=== PATIENT | female | born 1935 | race Caucasian/White ===

== ENCOUNTER 2016-06-24 18:47 | Emergency (ER) | payer MEDICARE, BC ==
[2016-06-24] MEDS ORDERED: Sodium Chloride 0.9% 10 ML Syringe FLUSH PRN (18:55)
[2016-06-24] MEDS ORDERED: Sodium Chloride 0.9% 500 ML IV SCH (19:00)
--- NOTE | 2016-06-24 19:19 | EDM.PDOC ---
<Júnior Coy - Last Filed: 06/24/16 19:14> ED HISTORY OF PRESENT ILLNESS - General Chief Complaint: Cardiovascular Problem Stated Complaint: [facility] Time Seen by Provider: 06/24/16 18:55 Source of Information: Reports: Patient History Limitations: Reports: No limitations - History of Present Illness INITIAL COMMENTS - FREE TEXT/NARRATIVE: The patient is a resident of [facility] which is an assisted living facility. She just sat down to play [place] and she felt like she had gas, upper abdominal pain and she was lightheaded. She passed out but she was still breathing. When EMS got there her heart rate was in the 30s and her blood pressure was in the 70s. She was moaning at first but she later was able to answer questions. When she got to us, her blood pressure was better at 111 systolic and she could answer my questions. She denies headache, chest pain, shortness of breath. She did have some upper abdominal pain when this started but that is better now. She had nausea but that is better and she was lightheaded. She has no numbness but she does have generalized weakness. She has no fever, chills or cough. Timing/Duration: Reports: Minutes: Severity: moderate Location, General: Reports: abdomen Quality: Reports: Sharp Improves with: Reports: None Worsens with: Reports: None Context, General: Reports: Other (She was sitting down to play bingo) Associated Symptoms (General): Reports: nausea/vomiting. Denies: chest pain, cough, fever/chills, shortness of breath - Related Data Allergies/ADRs: Allergies Allergy/AdvReac Type Severity Reaction Status Date / Time acetaminophen Allergy Cannot Verified 06/24/16 18:51 [From Tylenol-Codeine #3] Remember aspirin Allergy Airway Verified 06/24/16 18:51 Tightness codeine phosphate Allergy Cannot Verified 06/24/16 18:51 [From Tylenol-Codeine #3] Remember ibuprofen [From Motrin] Allergy Cannot Verified 06/24/16 18:51 Remember nitrofurantoin Allergy Cannot Verified 06/24/16 18:51 Remember risedronate sodium Allergy Cannot Verified 06/24/16 18:51 [From Actonel] Remember ct dye Allergy Airway Uncoded 06/24/16 18:51 Tightness Home Meds: Home Meds Beta-Carotene (Vitamin A) [A-Tate-25] 25,000 unit PO DAILY 03/24/14 [History] Fluticasone Propionate [Flonase] 50 mcg NASBOTH DAILY 09/02/15 [History] Gabapentin [Neurontin] 400 mg PO TID 09/02/15 [History] Ranitidine HCl [Zantac 75] 75 mg PO DAILY 09/02/15 [History] Benzonatate [Tessalon Perles] 200 mg PO ASDIRECTED PRN 10/07/15 [History] L.acidoph,Paracasei, B.lactis [Probiotic] 1 cap PO DAILY 10/07/15 [History] Levothyroxine Sodium [Synthroid] 25 mcg PO ASDIRECTED 10/07/15 [History] Levothyroxine [Synthroid] 50 mcg PO ASDIRECTED 10/07/15 [History] Methyl Salicylate/Menthol [Icy Hot [place]] 1 applic TOP ASDIRECTED PRN 10/07/15 [ History] Sennosides/Docusate Sodium [Senokot-S Tablet] 1 tab PO DAILY 10/07/15 [History] Simethicone [Gas-X] 80 mg PO ASDIRECTED PRN 10/07/15 [History] Sodium Chloride [[place] Saline] 1 spray INH BID 10/07/15 [History] Vitamin B Complex [B Complex] 1 tab PO DAILY 10/07/15 [History] Warfarin Sodium 3 mg PO DAILY 10/07/15 [History] guaiFENesin [Mucinex] 600 mg PO BID 10/07/15 [History] Acetaminophen [Tylenol Arthritis Pain] 1,300 mg PO Q8H PRN 06/24/16 [History] Acetaminophen [Tylenol] 650 mg PO Q6H PRN 06/24/16 [History] Albuterol [IJD: Albuterol HFA] 16 gm INH TID 06/24/16 [History] Multivitamin with Minerals [Multivitamins with Minerals] 1 tab PO DAILY [History] Mylanta 30 ml PO QID PRN 06/24/16 [History] Polyethylene Glycol 3350 [MiraLAX] 17 gm PO ASDIRECTED PRN 06/24/16 [History] Past Medical History HEENT History: Reports: Hard of hearing Cardiovascular History: Reports: High cholesterol Respiratory History: Reports: PE Other Respiratory History: DVT left leg - coumadin therapy Gastrointestinal History: Reports: GERD Genitourinary History: Reports: UTI, recurrent [employer] History: Reports: Other (see below) Other OB/BYN History: Laparoscopy for left ovarian tumor Musculoskeletal History: Reports: Arthritis, Back pain, chronic, Other (see below) Other Musculoskeletal History: calf pain, spinal stenosis Neurological History: Reports: Other (see below) Other Neuro History: 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 - Past Surgical History HEENT Surgical History: Reports: Adenoidectomy, Naso-sinus surgery, Tonsillectomy GI Surgical History: Reports: Cholecystectomy, Colonoscopy Female Surgical History: Reports: Hysterectomy Social & Family History - Tobacco Use Smoking Status *Q: Never Smoker Second Hand Smoke Exposure: No - Alcohol Use Days Per Week of Alcohol Use: 0 - Recreational Drug Use Recreational Drug Use: No ED ROS GENERAL - Review of Systems Review Of Systems: See Below Constitutional: Reports: no symptoms HEENT: Reports: No symptoms Respiratory: Reports: No Symptoms Cardiovascular: Reports: Lightheadedness Endocrine: Reports: no symptoms GI/Abdominal: Reports: Abdominal pain, Nausea. Denies: Vomiting : Reports: no symptoms Musculoskeletal: Reports: no symptoms Skin: Reports: no symptoms Neurological: Reports: No Symptoms ED EXAM, GENERAL - Physical Exam Exam: See Below Exam Limited By: No limitations General Appearance: alert, no apparent distress Ears: normal external exam Nose: normal inspection Head: atraumatic, normocephalic Neck: normal inspection Respiratory/Chest: no respiratory distress, lungs clear, normal breath sounds Cardiovascular: no edema, bradycardia, systolic murmur GI/Abdominal: soft, non tender, no organomegaly, no mass Back Exam: normal inspection Extremities: normal inspection Neurological: alert, oriented, no motor/sensory deficits EKG INTERPRETATION EKG Date: 06/24/16 Time: 18:46 Rhythm: other (sinus bradycardia) Rate (beats/min): 53 [place]: normal P-wave: present QRS: normal ST-T: normal QT: normal Course - Vital Signs Last Recorded V/S: Last Vital Signs Temp 36.0 C 06/24/16 18:51 Pulse 54 L 06/24/16 18:51 Resp 16 06/24/16 18:51 BP 111/59 L 06/24/16 18:51 Pulse Ox 96 06/24/16 18:51 Orthostatic Blood Pressure [ 145/68 Standing] Orthostatic Blood Pressure [ 146/70 Sitting] Orthostatic Blood Pressure [ 141/70 Supine] - Orders/Labs/Meds Orders: Active Orders 24 hr Category Date Time Status Cardiac Monitoring [RC] . DIRECTED Care 06/24/16 18:55 Active EKG Documentation Completion [RC] STAT Care 06/24/16 18:56 Active Orthostatic Vital Signs [RC] STAT Care 06/24/16 20:58 Active Oxygen Therapy [RC] PRN Care 06/24/16 18:55 Active Peripheral IV Care [RC] . DIRECTED Care 06/24/16 18:55 Active Chest 1V Frontal [CR] Stat Exams 06/24/16 18:56 Taken Sodium Chloride 0.9% [Normal Saline] 500 ml Med 06/24/16 19:00 Active IV .BOLUS Sodium Chloride 0.9% [Saline Flush] Med 06/24/16 18:55 Active 10 ml FLUSH ASDIRECTED PRN Peripheral IV Insertion Adult [OM.PC] Stat Oth 06/24/16 18:55 Ordered Medication Orders Sodium Chloride (Normal Saline) 500 mls @ 1,000 mls/hr IV .BOLUS JOSSY Last Admin: 06/24/16 19:04 Dose: 1,000 mls/hr Sodium Chloride (Saline Flush) 10 ml FLUSH ASDIRECTED PRN PRN Reason: Keep Vein Open Last Admin: 06/24/16 19:04 Dose: 10 ml Labs: Laboratory Tests 06/24/16 06/24/16 06/24/16 Range/Units 09:02 19:05 19:05 WBC 7.39 (3.98-10.04) K/mm3 RBC 3.82 L (3.98-5.22) M/mm3 Hgb 11.4 (11.2-15.7) gm/L Hct 36.3 (34.1-44.9) % MCV 95.0 H (79.4-94.8) fl MCH 29.8 (25.6-32.2) pg MCHC 31.4 L (32.2-35.5) g/dl RDW Std Deviation 45.9 (36.4-46.3) fL Plt Count 236 (182-369) K/mm3 MPV 9.5 (9.4-12.3) fl Neut % (Auto) 34.5 (34.0-71.1) % Lymph % (Auto) 48.8 (19.3-51.7) % [place] % (Auto) 13.4 H (4.7-12.5) % Eos % (Auto) 2.8 (0.7-5.8) Baso % (Auto) 0.4 (0.1-1.2) % Neut # (Auto) 2.54 (1.56-6.13) K/mm3 Lymph # (Auto) 3.61 (1.18-3.74) K/mm3 [place] # (Auto) 0.99 H (0.24-0.36) K/mm3 Eos # (Auto) 0.21 (0.04-0.36) K/mm3 Baso # (Auto) 0.03 (0.01-0.08) K/mm3 PT (8.0-13.0) SECONDS INR APTT (22-36) SECONDS Sodium 141 (136-145) mEq/L Potassium 3.7 (3.5-5.1) mEq/L Chloride 107 (98-107) mEq/L Carbon Dioxide 27 (21-32) mEq/L Anion Gap 10.7 (5-15) BUN 14 (7-18) mg/dL Creatinine 0.9 (0.55-1.02) mg/dL Est Cr Clr Drug Dosing TNP Estimated GFR (MDRD) > 60 (>60) mL/min BUN/Creatinine Ratio 15.6 (14-18) Glucose 151 H (83-115) mg/dL Calcium 8.4 L (8.5-10.1) mg/dL Total Bilirubin 0.3 (0.2-1.0) mg/dL AST 15 (15-37) U/L ALT 17 (14-59) U/L Alkaline Phosphatase 66 (46-116) U/L Troponin I < 0.017 (0.00-0.056) ng/mL Total Protein 5.9 L (6.4-8.2) g/dl Albumin 2.9 L (3.4-5.0) g/dl Globulin 3.0 gm/dL Albumin/Globulin Ratio 1.0 (1-2) Urine Color Yellow (Yellow) Urine Appearance Clear (Clear) Urine pH 5.5 (5.0-8.0) Ur Specific [place] 1.025 (1.005-1.030) Urine Protein 1+ H (Negative) Urine Glucose (UA) Negative (Negative) Urine Ketones Negative (Negative) Urine Occult Blood 2+ H (Negative) Urine Nitrite Negative (Negative) Urine Bilirubin Negative (Negative) Urine Urobilinogen 0.2 (0.2-1.0) Ur Leukocyte Esterase 1+ H (Negative) Urine RBC 0-5 (0-5) /hpf Urine WBC 5-10 H (0-5) /hpf Ur Epithelial Cells Not Reportable Ur Squamous Epith Cells 5-10 H (0-5) /hpf Ur Transition Epith Cell 0-5 (0-5) Amorphous Sediment Few H (NOT SEEN) /hpf Urine Bacteria Few (FEW) /hpf Hyaline Casts 0-5 (0-5) /lpf Urine Mucus Few (FEW) /hpf // Range/Units 19:33 WBC (3.98-10.04) K/mm3 RBC (3.98-5.22) M/mm3 Hgb (11.2-15.7) gm/L Hct (34.1-44.9) % MCV (79.4-94.8) fl MCH (25.6-32.2) pg MCHC (32.2-35.5) g/dl RDW Std Deviation (36.4-46.3) fL Plt Count (182-369) K/mm3 MPV (9.4-12.3) fl Neut % (Auto) (34.0-71.1) % Lymph % (Auto) (19.3-51.7) % [place] % (Auto) (4.7-12.5) % Eos % (Auto) (0.7-5.8) Baso % (Auto) (0.1-1.2) % Neut # (Auto) (1.56-6.13) K/mm3 Lymph # (Auto) (1.18-3.74) K/mm3 [facility] # (Auto) (0.24-0.36) K/mm3 Eos # (Auto) (0.04-0.36) K/mm3 Baso # (Auto) (0.01-0.08) K/mm3 PT 24.6 H (8.0-13.0) SECONDS INR 2.15 APTT 38 H (22-36) SECONDS Sodium (136-145) mEq/L Potassium (3.5-5.1) mEq/L Chloride (98-107) mEq/L Carbon Dioxide (21-32) mEq/L Anion Gap (5-15) BUN (7-18) mg/dL Creatinine (0.55-1.02) mg/dL Est Cr Clr Drug Dosing Estimated GFR (MDRD) (>60) mL/min BUN/Creatinine Ratio (14-18) Glucose (83-115) mg/dL Calcium (8.5-10.1) mg/dL Total Bilirubin (0.2-1.0) mg/dL AST (15-37) U/L ALT (14-59) U/L Alkaline Phosphatase (46-116) U/L Troponin I (0.00-0.056) ng/mL Total Protein (6.4-8.2) g/dl Albumin (3.4-5.0) g/dl Globulin gm/dL Albumin/Globulin Ratio (1-2) Urine Color (Yellow) Urine Appearance (Clear) Urine pH (5.0-8.0) Ur Specific [place] (1.005-1.030) Urine Protein (Negative) Urine Glucose (UA) (Negative) Urine Ketones (Negative) Urine Occult Blood (Negative) Urine Nitrite (Negative) Urine Bilirubin (Negative) Urine Urobilinogen (0.2-1.0) Ur Leukocyte Esterase (Negative) Urine RBC (0-5) /hpf Urine WBC (0-5) /hpf Ur Epithelial Cells Ur Squamous Epith Cells (0-5) /hpf Ur Transition Epith Cell (0-5) Amorphous Sediment (NOT SEEN) /hpf Urine Bacteria (FEW) /hpf Hyaline Casts (0-5) /lpf Urine Mucus (FEW) /hpf Meds: Medications Generic Name Dose Route Start Last Admin Trade Name Freq PRN Reason Stop Dose Admin Sodium Chloride 500 mls @ 1,000 mls/hr 06/24/16 19:00 06/24/16 19:04 Normal Saline IV 1,000 mls/hr .BOLUS JOSSY Administration Sodium Chloride 10 ml 06/24/16 18:55 06/24/16 19:04 Saline Flush FLUSH 10 ml ASDIRECTED PRN Administration Keep Vein Open - Re-Assessments/Exams Free Text/Narrative Re-Assessment/Exam: 06/24/16 19:20 I ordered an IV NS 500ml bolus, EKG, CT of the chest abdomen and pelvis to look at her aorta, labs and UA. My nurse informs me that she is allergic to CT dye and she gets airway swelling. I feel it is to risky to give IV dye even with premedication. I wanted them to go ahead with a CT without. 06/24/16 19:22 It is change of shift. Dr Murrieta to take over. Departure - Departure Disposition: Home, Self-Care 01 Clinical Impression: Vasovagal syncope, Aortic heart murmur on examination, Prediabetes Referrals: Tasha Kay MD [Primary Care Provider] - Forms: ED Department Discharge Additional Instructions: You were seen in the emergency room after passing out while playing bingo. Workup in the emergency room included blood work, a urinalysis, an ECG, a chest x-ray, CT scans of your head, chest, abdomen, and pelvis, and positional blood pressure checks. Your workup found only that your blood glucose was modestly elevated at 151. You likely have a condition called prediabetes, which is where your blood sugar is normal when you are feeling well, but that it goes up when you are under stress, or if given steroids. On examination of your heart, a murmur consistent with aortic stenosis was found. For both your blood sugar issue, and that your heart murmur issue, we are recommending that you followup with your PCP, Dr. Tasha Kay, for further evaluation. It is MOST LIKELY that you passed out because of slowing of your heart as a reaction to your earlier abdominal pain, a phenomenon known as a vasovagal reaction. This is a normal reaction that can happen to anyone. We recommend that you continue to take your current medications as prescribed. If any other problems, please do not hesitate to return to the ER. - My Orders Last 24 Hours: My Active Orders 06/24/16 20:58 Orthostatic Vital Signs [RC] STAT - Assessment/Plan Last 24 Hours: My Active Orders 06/24/16 20:58 Orthostatic Vital Signs [RC] STAT <Barry Murrieta - Last Filed: 06/24/16 22:15> ED HISTORY OF PRESENT ILLNESS - History of Present Illness INITIAL COMMENTS - FREE TEXT/NARRATIVE: Assumed care from Dr. Coy. I have evaluated the patient. The patient's daughter, who works at [employer], and was present at the time, provided additional history. My history is essentially the same as that given to Dr. Coy, that is, the patient was seated, playing bingo, when she complained of abdominal gas and bloating. She then became unresponsive in her chair, groaning. Staff from [employer] checked her pulse and found it to be 29. EMS was called. EMS found the patient's heart rate to be about 30 with blood pressure in the 76. Normal saline 500 mL bolus was started by EMS, and finished in the ED. Here in the ED, the patient's initial heart rate was in the 50s. No prior similar syncopal episodes. The patient reports that she has had dark red blood per rectum yesterday, but not today. She states that she has a known history of diverticulosis. Her last colonoscopy was about a year ago. The patient is on Coumadin for a history of DVT/PE. On my examination, I note the patient has a 3/6 harsh murmur heard best at the right upper sternal border, consistent with aortic stenosis. Her lungs are clear to auscultation bilaterally. Her abdominal exam is benign - she has no tenderness to palpation at this time. Trace bilateral lower extremity edema. Neurologically, the patient has no focal neurologic deficits, although appears to be generally weak or tired. Course - Radiology Interpretation Free Text/Narrative:: Portable chest radiograph does not appear to demonstrate any acute abnormalities. Cardiac silhouette is at the upper limits of normal on this AP view. No pulmonary vascular congestion. No pleural effusions. No focal infiltrate. No pneumothorax. Formal read per the Radiologist pending. CT of the head without contrast is read by Dr. Gabriel as: 1. Sinus findings most likely due to chronic sinusitis. 2. Mild senescent change as noted above. 3. No acute intracranial abnormality is appreciated. CT of the chest without contrast is read by Dr. Gabriel as: 1. Incidental findings. Nothing acute is seen on noncontrast CT study of the chest. CT of the abdomen and pelvis without contrast is read by Dr. Gabriel as: 1. Atherosclerotic change within the aorta and iliac vessels. No aneurysm is seen. 2. Other incidental findings. - Re-Assessments/Exams Free Text/Narrative Re-Assessment/Exam: 06/24/16 21:19 The patient is not orthostatic. We are still waiting for the urinalysis results. 06/24/16 22:07 Test results discussed with the patient and numerous family members. Brodie's workup is unremarkable, and does not explain the cause of the patient's syncopal episode, however, clinically, it appears that she suffered a vasovagal reaction, likely due to abdominal discomfort. Her abdominal discomfort has since resolved, and she is hemodynamically stable at this time. On auscultation of her heart, I heard a murmur consistent with aortic stenosis. I am recommending an echocardiogram as an outpatient followup. Additionally, the patient's blood glucose returned as 151, yet the patient has no history of diabetes. I suspect she has prediabetes. For both of these issues, I will have the patient followup with her PCP, Dr. Tasha Kay. I am comfortable discharging the patient home, and after lengthy discussion with the patient and her family, the patient is comfortable going home, as well. Departure - Departure Time of Disposition: 22:10 Condition: good - My Orders Last 24 Hours: My Active Orders 06/24/16 20:58 Orthostatic Vital Signs [RC] STAT - Assessment/Plan Last 24 Hours: My Active Orders 06/24/16 20:58 Orthostatic Vital Signs [RC] STAT
[2016-06-24 19:41] VITALS: BP 111/59
--- NOTE | 2016-06-24 20:13 | CT ---
CT chest Technique: Multiple axial sections were obtained from above the lung apices inferiorly through the lung bases. Intravenous contrast was not utilized due to history of allergy. Findings: Atherosclerotic change is seen within the thoracic aorta. No aneurysm is seen. No evaluation for dissection can be made without contrast. Mediastinum and hilar regions show small lymph nodes which are within normal limits. No pericardial thickening is seen. Visualized lung bases are clear. No pleural effusions are seen. Bone window settings were reviewed which shows scattered degenerative change within the spine. Impression: 1. Incidental findings. Nothing acute is seen on noncontrast CT study of the chest. Diagnostic code #2 CT abdomen and pelvis Technique: Multiple axial sections were obtained from above the dome of the diaphragm inferiorly through the pubic symphysis. Intravenous and oral contrast not utilized. Intravenous contrast was not utilized due to history of allergy. Findings: Liver and spleen have an unremarkable noncontrast CT appearance. Adrenal glands show no nodule. Pancreas is within normal limits. Kidneys show no abnormal calcifications or hydronephrosis. Aorta shows atherosclerotic change which continues into the iliac vessels without aneurysm. No retroperitoneal adenopathy or mesenteric abnormalities are seen. No pelvic mass or adenopathy is seen. Calcified lesion which is felt compatible with calcified fibroid is noted off the posterior uterus measuring 3.0 cm compatible with old calcified uterine fibroid. No bowel dilatation is seen. Diffuse degenerative change is noted within the spine. Impression: 1. Atherosclerotic change within the aorta and iliac vessels. No aneurysm is seen. 2. Other incidental findings. Diagnostic code #2
--- NOTE | 2016-06-24 20:13 | CT ---
Head CT Technique: Multiple axial sections through the brain were obtained. Intravenous contrast was not utilized. Comparison: Previous head CT exam of 08/13/09 is available as well as previous MRI brain of 07/04/12. Findings: Ventricles along with basal cisterns and sulci over convexities are mildly prominent. Very minimal diminished density is noted within portions of the periventricular white matter compatible with small vessel ischemic demyelination change. No other abnormal parenchymal densities are seen. No evidence of intracranial hemorrhage. No midline shift or mass effect is seen. Bone window settings were reviewed which shows prominent mucosal thickening within both maxillary sinuses. Mild mucosal thickening in noted within the ethmoid sinuses. No acute calvarial abnormality is seen. Impression: 1. Sinus findings most likely due to chronic sinusitis. 2. Mild senescent change as noted above. 3. No acute intracranial abnormality is appreciated. Diagnostic code #2
--- NOTE | 2016-06-25 08:18 | CR ---
Chest: Portable view of the chest was obtained. Comparison: Previous chest x-ray 03/25/14. Heart size and mediastinum are within normal limits for portable technique. Minimal atelectasis within the left base is seen. Lungs otherwise are clear. Bony structures are grossly intact. Impression: 1. Nothing acute is identified on portable chest x-ray. Diagnostic code #2
== END 2016-06-24 22:27 | disposition home or self-care (01) ==
LOC: JD.ED 18:47
DX: R55 Syncope and collapse (principal); Z88.8 Allergy status to other drugs, medicaments and biological substances; Z88.6 Allergy status to analgesic agent; Z91.041 Radiographic dye allergy status; Z79.01 Long term (current) use of anticoagulants; Z79.899 Other long term (current) drug therapy; Z86.718 Personal history of other venous thrombosis and embolism; K21.9 Gastro-esophageal reflux disease without esophagitis; M19.90 Unspecified osteoarthritis, unspecified site; F32.9 Major depressive disorder, single episode, unspecified; F41.9 Anxiety disorder, unspecified; E03.9 Hypothyroidism, unspecified; I35.8 Other nonrheumatic aortic valve disorders; R73.03 Prediabetes
CPT/HCPCS: 36415; 70450; 71010; 71250; 74176; 80053; 81001; 84484; 85025; 85610; 85730; 93005; J7040; J7050; 96360; 99285; 99285-25

== ENCOUNTER 2016-07-30 09:23 | Emergency (ER) | payer MEDICARE, BC ==
[2016-07-30 09:36] VITALS: BP 117/58
--- NOTE | 2016-07-30 09:57 | EDM.PDOC ---
ED HPI GENERAL MEDICAL PROBLEM - General Chief Complaint: Neurological Problem Stated Complaint: [facility] Time Seen by Provider: 07/30/16 09:30 Source of Information: Reports: Patient, EMS, RN Notes Reviewed History Limitations: Reports: No Limitations - History of Present Illness INITIAL COMMENTS - FREE TEXT/NARRATIVE: The patient states that she developed a "gassy stomach" after breakfast this morning. She went and had a bowel movement, but still felt gassy, so went and sat in a chair in her room. She spoke to her son on the telephone, then apparently dropped the phone. The patient's son called the assisted living facility, where staff found the patient is still sitting in her chair, but feeling very weak. She was hemodynamically stable. At this time, the patient states that she feels fine, without any gassy stomach or pain, but that she still feels generally weak. No dyspnea. The patient was seen in this ED 06/24/2016 following a syncopal episode while playing bingo. At that time, she was found to have a heart rate in the 30s, and her preceding symptoms included gas and upper abdominal pain. Her ED workup was unremarkable, although she was found to have a murmur consistent with aortic stenosis. She has subsequently undergone Holter monitor and echocardiogram, results unknown. - Related Data Allergies Allergy/AdvReac Type Severity Reaction Status Date / Time acetaminophen Allergy Cannot Verified 07/30/16 09:30 [From Tylenol-Codeine #3] Remember aspirin Allergy Airway Verified 07/30/16 09:30 Tightness codeine phosphate Allergy Cannot Verified 07/30/16 09:30 [From Tylenol-Codeine #3] Remember ibuprofen [From Motrin] Allergy Cannot Verified 07/30/16 09:30 Remember nitrofurantoin Allergy Cannot Verified 07/30/16 09:30 Remember risedronate sodium Allergy Cannot Verified 07/30/16 09:30 [From Actonel] Remember ct dye Allergy Airway Uncoded 07/30/16 09:30 Tightness Home Meds: Home Meds Beta-Carotene (Vitamin A) [A-Tate-25] 25,000 unit PO DAILY 03/24/14 [History] Fluticasone Propionate [Flonase] 50 mcg NASBOTH DAILY 09/02/15 [History] Gabapentin [Neurontin] 400 mg PO TID 09/02/15 [History] Ranitidine HCl [Zantac 75] 75 mg PO DAILY 09/02/15 [History] Benzonatate [Tessalon Perles] 200 mg PO ASDIRECTED PRN 10/07/15 [History] L.acidoph,Paracasei, B.lactis [Probiotic] 1 cap PO TID 10/07/15 [History] Levothyroxine Sodium [Synthroid] 25 mcg PO MOWEFR 10/07/15 [History] Levothyroxine [Synthroid] 50 mcg PO SUTUTHSA 10/07/15 [History] Methyl Salicylate/Menthol [[place] Hot [place]] 1 applic TOP ASDIRECTED PRN 10/07/15 [ History] Sennosides/Docusate Sodium [Senokot-S Tablet] 1 tab PO DAILY 10/07/15 [History] Simethicone [Gas-X] 80 mg PO ASDIRECTED PRN 10/07/15 [History] Sodium Chloride [[place] Saline] 1 spray INH BID 10/07/15 [History] Vitamin B Complex [B Complex] 1 tab PO DAILY 10/07/15 [History] Warfarin Sodium 3 mg PO SUTUWETHSA 10/07/15 [History] guaiFENesin [Mucinex] 600 mg PO BID 10/07/15 [History] Acetaminophen [Tylenol Arthritis Pain] 1,300 mg PO Q8H PRN 06/24/16 [History] Acetaminophen [Tylenol] 650 mg PO Q6H PRN 06/24/16 [History] Albuterol [IJD: Albuterol HFA] 16 gm INH TID PRN 06/24/16 [History] Multivitamin with Minerals [Multivitamins with Minerals] 1 tab PO DAILY [History] Mylanta 30 ml PO QID PRN 06/24/16 [History] Polyethylene Glycol 3350 [MiraLAX] 17 gm PO ASDIRECTED PRN 06/24/16 [History] Methylcellulose [Citrucel] 500 mg PO BID 07/30/16 [History] Warfarin [Coumadin] 4.5 mg PO MOFR 07/30/16 [History] Past Medical History HEENT History: Reports: Hard of hearing Cardiovascular History: Reports: High Cholesterol Respiratory History: Reports: PE Other Respiratory History: DVT left leg - coumadin therapy Gastrointestinal History: Reports: GERD Genitourinary History: Reports: UTI, Recurrent [employer] History: Reports: Other (See Below) Other OB/BYN History: Laparoscopy for left ovarian tumor Musculoskeletal History: Reports: Arthritis, Back Pain, Chronic, Other (See Below) Other Musculoskeletal History: calf pain, spinal stenosis Neurological History: Reports: Other (See Below) Other Neuro History: 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 - Past Surgical History HEENT Surgical History: Reports: Adenoidectomy, Naso-Sinus Surgery, Tonsillectomy GI Surgical History: Reports: Cholecystectomy, Colonoscopy Social & Family History - Tobacco Use Smoking Status *Q: Never Smoker Second Hand Smoke Exposure: No - Alcohol Use Days Per Week of Alcohol Use: 0 - Recreational Drug Use Recreational Drug Use: No - Living Situation & Occupation Living situation: Reports: assisted living Occupation: retired ED ROS GENERAL - Review of Systems Review Of Systems: See Below Constitutional: Reports: No Symptoms HEENT: Reports: No Symptoms Respiratory: Reports: No Symptoms Cardiovascular: Reports: No Symptoms Endocrine: Reports: No Symptoms GI/Abdominal: Reports: No Symptoms : Reports: No Symptoms Musculoskeletal: Reports: No Symptoms Skin: Reports: No Symptoms Neurological: Reports: No Symptoms Psychiatric: Reports: No Symptoms Hematologic/Lymphatic: Reports: No Symptoms Immunologic: Reports: No Symptoms - Physical Exam Exam: See Below Exam Limited By: No Limitations General Appearance: Alert, WD/WN, No Apparent Distress, Other (Appears tired/ fatiqued) Eye Exam: Bilateral Eye: Other (Post cataract surgery) Ears: Normal External Exam, Normal Canal, Hearing Grossly Normal, Normal TMs Nose: Normal Inspection, Normal Mucosa, No Blood Throat/Mouth: Normal Inspection, Normal Lips, Normal Teeth, Normal Gums, Normal Voice, No Airway Compromise, Other (Dry oral mucosa) Head Exam: Atraumatic, Normocephalic Neck: Normal Inspection, Full Range of Motion Respiratory/Chest: No Respiratory Distress, Lungs Clear, Normal Breath Sounds, No Accessory Muscle Use Cardiovascular: Normal Peripheral Pulses, Regular Rate, Rhythm, No Edema, No Gallop, No JVD, No Rub, Systolic Murmur (3/6, best heard at the RUSB, c/w ) GI/Abdominal: Normal Bowel Sounds, Soft, Non-Tender, No Organomegaly, No Distention, No Abnormal Bruit, No Mass (Female) Exam: Deferred Rectal (Female) Exam: Deferred Neuro Exam (Abbreviated): Alert, Oriented, CN II-XII Intact, Normal Cognition, No Motor/Sensory Deficits Back Exam: Normal Inspection, Full Range of Motion, NT Extremities: Normal Inspection, Normal Range of Motion, No Pedal Edema, Normal Capillary Refill Psychiatric: Normal Affect Skin Exam: Warm, Dry, Intact, Normal Color, No Rash EKG INTERPRETATION EKG Date: 07/30/16 Time: 10:13 Rhythm: NSR Rate (beats/min): 53 [place]: normal P-wave: present QRS: normal ST-T: normal QT: normal Comparison: no change (06/24/2016) Course - Vital Signs Last Recorded V/S: Last Vital Signs Temp 35.7 C 07/30/16 09:30 Pulse 58 L 07/30/16 09:30 Resp 13 07/30/16 09:30 BP 117/58 L 07/30/16 09:30 Pulse Ox 95 07/30/16 09:30 Orthostatic Blood Pressure [ 118/75 Standing] Orthostatic Blood Pressure [ 123/61 Sitting] Orthostatic Blood Pressure [ 118/59 Supine] - Orders/Labs/Meds Orders: Active Orders 24 hr Category Date Time Status EKG Documentation Completion [RC] STAT Care 07/30/16 09:48 Active Orthostatic Vital Signs [RC] STAT Care 07/30/16 09:48 Active Labs: Laboratory Tests 07/30/16 07/30/16 07/30/16 Range/Units 09:57 10:11 10:11 WBC 6.39 (3.98-10.04) K/mm3 RBC 4.35 (3.98-5.22) M/mm3 Hgb 13.1 (11.2-15.7) gm/L Hct 41.3 (34.1-44.9) % MCV 94.9 H (79.4-94.8) fl MCH 30.1 (25.6-32.2) pg MCHC 31.7 L (32.2-35.5) g/dl RDW Std Deviation 46.6 H (36.4-46.3) fL Plt Count 238 (182-369) K/mm3 MPV 9.9 (9.4-12.3) fl Neutrophils % (Manual) 66 H (40-60) % Band Neutrophils % 1 (0-10) % Lymphocytes % (Manual) 24 (20-40) % Atypical Lymphs % 0 % Monocytes % (Manual) 7 (2-10) % Eosinophils % (Manual) 2 (0.7-5.8) % Basophils % (Manual) 0 L (0.1-1.2) Platelet Estimate Adequate RBC Morph Comment Normal PT (8.0-13.0) SECONDS INR APTT (22-36) SECONDS Sodium 144 (136-145) mEq/L Potassium 3.9 (3.5-5.1) mEq/L Chloride 107 (98-107) mEq/L Carbon Dioxide 29 (21-32) mEq/L Anion Gap 11.9 (5-15) BUN 13 (7-18) mg/dL Creatinine 0.8 (0.55-1.02) mg/dL Est Cr Clr Drug Dosing 57.64 mL/min Estimated GFR (MDRD) > 60 (>60) mL/min BUN/Creatinine Ratio 16.3 (14-18) Glucose 119 H (83-115) mg/dL Calcium 9.3 (8.5-10.1) mg/dL Magnesium 2.2 (1.8-2.4) mg/dl Total Bilirubin 0.3 (0.2-1.0) mg/dL AST 18 (15-37) U/L ALT 22 (14-59) U/L Alkaline Phosphatase 65 (46-116) U/L Troponin I < 0.017 (0.00-0.056) ng/mL Total Protein 6.8 (6.4-8.2) g/dl Albumin 3.4 (3.4-5.0) g/dl Globulin 3.4 gm/dL Albumin/Globulin Ratio 1.0 (1-2) TSH 3rd Generation 6.212 H (0.358-3.74) uIU/mL Urine Color Yellow (Yellow) Urine Appearance Clear (Clear) Urine pH 5.5 (5.0-8.0) Ur Specific [place] 1.020 (1.005-1.030) Urine Protein Negative (Negative) Urine Glucose (UA) Negative (Negative) Urine Ketones Negative (Negative) Urine Occult Blood Negative (Negative) Urine Nitrite Negative (Negative) Urine Bilirubin Negative (Negative) Urine Urobilinogen 0.2 (0.2-1.0) Ur Leukocyte Esterase Negative (Negative) Urine RBC 0-5 (0-5) /hpf Urine WBC 0-5 (0-5) /hpf Ur Epithelial Cells 0-5 (0-5) /hpf Urine Bacteria Rare (FEW) /hpf Urine Mucus Not seen (FEW) /hpf 07/30/16 Range/Units 10:11 WBC (3.98-10.04) K/mm3 RBC (3.98-5.22) M/mm3 Hgb (11.2-15.7) gm/L Hct (34.1-44.9) % MCV (79.4-94.8) fl MCH (25.6-32.2) pg MCHC (32.2-35.5) g/dl RDW Std Deviation (36.4-46.3) fL Plt Count (182-369) K/mm3 MPV (9.4-12.3) fl Neutrophils % (Manual) (40-60) % Band Neutrophils % (0-10) % Lymphocytes % (Manual) (20-40) % Atypical Lymphs % % Monocytes % (Manual) (2-10) % Eosinophils % (Manual) (0.7-5.8) % Basophils % (Manual) (0.1-1.2) Platelet Estimate RBC Morph Comment PT 23.7 H (8.0-13.0) SECONDS INR 2.08 APTT 36 (22-36) SECONDS Sodium (136-145) mEq/L Potassium (3.5-5.1) mEq/L Chloride (98-107) mEq/L Carbon Dioxide (21-32) mEq/L Anion Gap (5-15) BUN (7-18) mg/dL Creatinine (0.55-1.02) mg/dL Est Cr Clr Drug Dosing mL/min Estimated GFR (MDRD) (>60) mL/min BUN/Creatinine Ratio (14-18) Glucose (83-115) mg/dL Calcium (8.5-10.1) mg/dL Magnesium (1.8-2.4) mg/dl Total Bilirubin (0.2-1.0) mg/dL AST (15-37) U/L ALT (14-59) U/L Alkaline Phosphatase (46-116) U/L Troponin I (0.00-0.056) ng/mL Total Protein (6.4-8.2) g/dl Albumin (3.4-5.0) g/dl Globulin gm/dL Albumin/Globulin Ratio (1-2) TSH 3rd Generation (0.358-3.74) uIU/mL Urine Color (Yellow) Urine Appearance (Clear) Urine pH (5.0-8.0) Ur Specific [place] (1.005-1.030) Urine Protein (Negative) Urine Glucose (UA) (Negative) Urine Ketones (Negative) Urine Occult Blood (Negative) Urine Nitrite (Negative) Urine Bilirubin (Negative) Urine Urobilinogen (0.2-1.0) Ur Leukocyte Esterase (Negative) Urine RBC (0-5) /hpf Urine WBC (0-5) /hpf Ur Epithelial Cells (0-5) /hpf Urine Bacteria (FEW) /hpf Urine Mucus (FEW) /hpf - Re-Assessments/Exams Free Text/Narrative Re-Assessment/Exam: 07/30/16 10:43 The patient is not orthostatic. 07/30/16 11:29 Test results discussed with the patient, her son, and his . Today's workup is grossly unremarkable, with the exception of her TSH being elevated at 6.212. With further discussion, the patient states that she takes her Synthroid in the morning at breakfast, along with the rest of her morning medications. Synthroid should be taken 2 hours prior to eating, and her taking her Synthroid with breakfast may be the reason why her TSH remains elevated. I'm going to recommend that she start taking this medicine 2 hours prior to breakfast. With respect to her possible syncopal episode, the etiology is unclear. It is possible that she had a vagal reaction, although by the time that her vitals were checked, they had returned to normal. At this time, the patient is alert and neurologically sound. There is no suggestion that she suffered a stroke or TIA. During this ED visit, it was noted that the patient's oxygen saturation drops when she falls asleep, but returns to normal when she wakes up. She may benefit from supplemental oxygen at bedtime. Departure - Departure Time of Disposition: 11:32 Disposition: Home, Self-Care 01 Condition: good Clinical Impression: Vasovagal syncope, Nocturnal hypoxemia, Elevated TSH - Discharge Information Referrals: Tasha Kay MD [Primary Care Provider] - Forms: ED Department Discharge Additional Instructions: You were seen in the emergency room after passing out or nearly passing out at home. Workup in the ER included blood work, a urinalysis, an ECG, and positional blood pressure checks. Your entire workup was unremarkable, with the exception of your TSH, which was found to be elevated at 6.212. The cause of your passing out is unclear. It is possible that you had a note or vasovagal reaction because of abdominal discomfort. Your TSH may be elevated because you are not taking your Synthroid correctly. Start taking your Synthroid 2 hours before breakfast. You should then have your TSH rechecked in about 5 weeks. We found that your oxygen saturation drops when you sleep. You may benefit from supplemental oxygen at bedtime. Please talk to your PCP, Dr. Tasha Kay, about this. If any other problems, please do not hesitate to return to the ER. - My Orders Last 24 Hours: My Active Orders 07/30/16 09:48 EKG Documentation Completion [RC] STAT Orthostatic Vital Signs [RC] STAT - Assessment/Plan Last 24 Hours: My Active Orders 07/30/16 09:48 EKG Documentation Completion [RC] STAT Orthostatic Vital Signs [RC] STAT
== END 2016-07-30 11:30 | disposition home or self-care (01) ==
LOC: JD.ED 09:23
DX: R55 Syncope and collapse (principal); R09.02 Hypoxemia; R79.89 Other specified abnormal findings of blood chemistry; E78.00 Pure hypercholesterolemia, unspecified; K21.9 Gastro-esophageal reflux disease without esophagitis; F41.8 Other specified anxiety disorders; E03.9 Hypothyroidism, unspecified; M19.90 Unspecified osteoarthritis, unspecified site; Z98.890 Other specified postprocedural states; Z79.01 Long term (current) use of anticoagulants; Z79.899 Other long term (current) drug therapy; Z88.5 Allergy status to narcotic agent; Z88.6 Allergy status to analgesic agent; Z88.8 Allergy status to other drugs, medicaments and biological substances; Z91.041 Radiographic dye allergy status
CPT/HCPCS: 36415; 80053; 81001; 83735; 84443; 84484; 85025; 85610; 85730; 93005; 99285; P9612

== ENCOUNTER 2017-02-26 17:01 | Emergency (ER) | payer MEDICARE, BC ==
[2017-02-26 17:26] VITALS: BP 152/62
[2017-02-26] MEDS ORDERED: Sodium Chloride 0.9% 10 ML Syringe FLUSH PRN (17:26)
[2017-02-26] MEDS ORDERED: Sodium Chloride 0.9% 500 ML IV ONE ×3 (17:27→18:22)
--- NOTE | 2017-02-26 17:35 | EDM.PDOC ---
ED HPI GENERAL MEDICAL PROBLEM - General Chief Complaint: Gastrointestinal Problem Stated Complaint: [facility] Time Seen by Provider: 02/26/17 17:19 Source of Information: Reports: Patient History Limitations: Reports: No Limitations - History of Present Illness INITIAL COMMENTS - FREE TEXT/NARRATIVE: Patient is a 81-year-old female who presents to the ED from [facility] complaining of weakness, poor appetite, fatigue, nausea/vomiting, and diarrhea. Patient states this started yesterday a.m. and has persisted. Unable to keep any fluids or foods down. There have been no known recent sick exposures. Complains of generalized body aches secondary to vomiting. Nausea has improved with administration of Zofran enroute to the ED. She denies any headaches, vision changes, numbness to the extremities, chest pain, shortness of breath, dysuria, rash, difficulty swallowing, or any additional complaints. 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, hypertension, hyperlipidemia, osteoarthritis, DVT left leg, PE, GERD, hypothyroidism, aortic valve stenosis Current medications include: Albuterol inhaler, B complex vitamins, beta- carotene, Coumadin, Flonase, gabapentin, levothyroxine, Tessalon pearls, Zantac - Related Data Allergies Allergy/AdvReac Type Severity Reaction Status Date / Time acetaminophen Allergy Cannot Verified 02/26/17 17:26 [From Tylenol-Codeine #3] Remember aspirin Allergy Airway Verified 02/26/17 17:26 Tightness codeine phosphate Allergy Cannot Verified 02/26/17 17:26 [From Tylenol-Codeine #3] Remember ibuprofen [From Motrin] Allergy Cannot Verified 02/26/17 17:26 Remember nitrofurantoin Allergy Cannot Verified 02/26/17 17:26 Remember risedronate sodium Allergy Cannot Verified 02/26/17 17:26 [From Actonel] Remember ct dye Allergy Airway Uncoded 02/26/17 17:26 Tightness Home Meds: Home Meds Beta-Carotene (Vitamin A) [A-Tate-25] 25,000 unit PO DAILY 03/24/14 [History] Fluticasone Propionate [Flonase] 1 spray NASBOTH DAILY 09/02/15 [History] Gabapentin [Neurontin] 400 mg PO TID 09/02/15 [History] Ranitidine HCl [Zantac 75] 75 mg PO BEDTIME 09/02/15 [History] Benzonatate [Tessalon Perles] 200 mg PO Q8H PRN 10/07/15 [History] L.acidoph,Paracasei, B.lactis [Probiotic] 1 cap PO TID 10/07/15 [History] Levothyroxine Sodium [Synthroid] 25 mcg PO MOWEFR 10/07/15 [History] Levothyroxine [Synthroid] 50 mcg PO SUTUTHSA 10/07/15 [History] Methyl Salicylate/Menthol [[place]] 1 applic TOP ASDIRECTED PRN 10/07/15 [ History] Sennosides/Docusate Sodium [Senokot-S Tablet] 1 tab PO DAILY 10/07/15 [History] Simethicone [Gas-X] 80 mg PO TID PRN 10/07/15 [History] Sodium Chloride [[place] Saline] 1 spray INH BID 10/07/15 [History] Vitamin B Complex [B Complex] 1 tab PO DAILY 10/07/15 [History] Warfarin Sodium 3 mg PO SUTUTHSA 10/07/15 [History] guaiFENesin [Mucinex] 600 mg PO BID 10/07/15 [History] Acetaminophen [Tylenol Arthritis Pain] 1,300 mg PO Q8H PRN 06/24/16 [History] Acetaminophen [Tylenol] 650 mg PO Q6H PRN 06/24/16 [History] Albuterol [IJD: Albuterol HFA] 2 puff INH TID PRN 06/24/16 [History] Multivitamin with Minerals [Multivitamins with Minerals] 1 tab PO DAILY [History] Mylanta 30 ml PO QID PRN 06/24/16 [History] Polyethylene Glycol 3350 [MiraLAX] 17 gm PO ASDIRECTED PRN 06/24/16 [History] Methylcellulose [Citrucel] 500 mg PO BID 07/30/16 [History] Warfarin [Coumadin] 4.5 mg PO MOWEFR 07/30/16 [History] Ondansetron [Zofran ODT] 4 mg PO Q6H PRN #20 tab.dis 02/26/17 [Rx] Potassium Chloride 20 meq PO QAM #30 tablet.er 02/26/17 [Rx] guaiFENesin [Mucinex] 600 mg PO BID PRN 02/26/17 [History] Past Medical History HEENT History: Reports: Hard of Hearing Cardiovascular History: Reports: High Cholesterol Respiratory History: Reports: PE Other Respiratory History: DVT left leg - coumadin therapy Gastrointestinal History: Reports: GERD Genitourinary History: Reports: UTI, Recurrent [employer]INE [employer] 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 Denies : Fever HEENT: Reports: No Symptoms Respiratory: Reports: No Symptoms Cardiovascular: Reports: No Symptoms GI/Abdominal: Reports: Abdominal Pain (Faint abdominal cramping), Diarrhea, Decreased Appetite, Nausea, Vomiting. Denies: Black Stool, Bloody Stool, Constipation, Hematemesis, Hematochezia, Melena : Reports: No Symptoms Musculoskeletal: Reports: Muscle Pain (Generalized body aches) Skin: Reports: No Symptoms Neurological: Reports: Dizziness, Weakness. Denies: Headache ED EXAM, GI/ABD - Physical Exam Exam: See Below Exam Limited By: No Limitations General Appearance: Alert, WD/WN, Moderate Distress Ears: Hearing Grossly Normal Nose: Normal Inspection Throat/Mouth: Normal Voice, No Airway Compromise, Other (Dry oromucosa) Neck: Normal Inspection, Supple, Non-Tender, Full Range of Motion. No: Lymphadenopathy (L), Lymphadenopathy (R) Respiratory/Chest: No Respiratory Distress, Lungs Clear, Normal Breath Sounds, No Accessory Muscle Use, Chest Non-Tender Cardiovascular: Normal Peripheral Pulses, Regular Rate, Rhythm, Systolic Murmur (Aortic in origin) GI/Abdominal Exam: Normal Bowel Sounds, Soft, Non-Tender, No Organomegaly, No Distention, No Mass Extremities: Normal Inspection, Normal Range of Motion, Non-Tender, No Pedal Edema, Normal Capillary Refill Neurological: Alert, Oriented, CN II-XII Intact, Normal Cognition, No Motor/ Sensory Deficits Psychiatric: Normal Affect, Normal Mood Skin Exam: Warm, Dry, Intact, Normal Color Course - Vital Signs Last Recorded V/S: Last Vital Signs Temp 96.6 F 02/26/17 17:18 Pulse 69 02/26/17 17:18 Resp 14 02/26/17 17:18 BP 152/62 H 02/26/17 17:18 Pulse Ox 92 L 02/26/17 17:18 - Orders/Labs/Meds Orders: Active Orders 24 hr Category Date Time Status EKG Documentation Completion [RC] STAT Care 02/26/17 18:09 Active EKG Documentation Completion [RC] STAT Care 02/26/17 18:09 Active Peripheral IV Care [RC] . DIRECTED Care 02/26/17 17:27 Active Abdomen 1V Flat [CR] Stat Exams 02/26/17 17:28 Taken Chest 1V Frontal [CR] Stat Exams 02/26/17 17:28 Taken Peripheral IV Insertion Adult [OM.PC] Stat Oth 02/26/17 17:26 Ordered Labs: Laboratory Tests 02/26/17 02/26/17 02/26/17 Range/Units 17:19 17:25 17:25 WBC 8.78 (3.98-10.04) K/mm3 RBC 4.33 (3.98-5.22) M/mm3 Hgb 13.1 (11.2-15.7) gm/L Hct 41.8 (34.1-44.9) % MCV 96.5 H (79.4-94.8) fl MCH 30.3 (25.6-32.2) pg MCHC 31.3 L (32.2-35.5) g/dl RDW Std Deviation 48.0 H (36.4-46.3) fL Plt Count 239 (182-369) K/mm3 MPV 10.1 (9.4-12.3) fl Neut % (Auto) 67.9 (34.0-71.1) % Lymph % (Auto) 18.6 L (19.3-51.7) % [place] % (Auto) 12.5 (4.7-12.5) % Eos % (Auto) 0.9 (0.7-5.8) Baso % (Auto) 0.0 L (0.1-1.2) % Neut # (Auto) 5.96 (1.56-6.13) K/mm3 Lymph # (Auto) 1.63 (1.18-3.74) K/mm3 [place] # (Auto) 1.10 H (0.24-0.36) K/mm3 Eos # (Auto) 0.08 (0.04-0.36) K/mm3 Baso # (Auto) 0.00 L (0.01-0.08) K/mm3 PT (8.0-13.0) SECONDS INR Sodium 139 (136-145) mEq/L Potassium 3.1 L (3.5-5.1) mEq/L Chloride 103 (98-107) mEq/L Carbon Dioxide 27 (21-32) mEq/L Anion Gap 12.1 (5-15) BUN 11 (7-18) mg/dL Creatinine 0.7 (0.55-1.02) mg/dL Est Cr Clr Drug Dosing 65.87 mL/min Estimated GFR (MDRD) > 60 (>60) mL/min BUN/Creatinine Ratio 15.7 (14-18) Glucose 144 H (83-115) mg/dL Calcium 8.6 (8.5-10.1) mg/dL Magnesium 1.9 (1.8-2.4) mg/dl Total Bilirubin 0.3 (0.2-1.0) mg/dL AST 21 (15-37) U/L ALT 22 (14-59) U/L Alkaline Phosphatase 57 (46-116) U/L Troponin I (0.00-0.056) ng/mL C-Reactive Protein 1.5 H* (<1.0) mg/dL Total Protein 6.8 (6.4-8.2) g/dl Albumin 3.1 L (3.4-5.0) g/dl Globulin 3.7 gm/dL Albumin/Globulin Ratio 0.8 L (1-2) TSH 3rd Generation (0.358-3.74) uIU/mL Urine Color Yellow (Yellow) Urine Appearance Slt cloudy H (Clear) Urine pH 5.5 (5.0-8.0) Ur Specific [place] 1.025 (1.005-1.030) Urine Protein Trace H (Negative) Urine Glucose (UA) Negative (Negative) Urine Ketones Trace H (Negative) Urine Occult Blood Negative (Negative) Urine Nitrite Negative (Negative) Urine Bilirubin Negative (Negative) Urine Urobilinogen 0.2 (0.2-1.0) Ur Leukocyte Esterase Negative (Negative) Urine RBC 0-5 (0-5) /hpf Urine WBC 0-5 (0-5) /hpf Ur Epithelial Cells 5-10 H (0-5) /hpf Urine Bacteria Few (FEW) /hpf Hyaline Casts 5-10 H (0-5) /lpf Urine Mucus Moderate H (FEW) /hpf 02/26/17 02/26/17 02/26/17 Range/Units 17:25 17:25 17:25 WBC (3.98-10.04) K/mm3 RBC (3.98-5.22) M/mm3 Hgb (11.2-15.7) gm/L Hct (34.1-44.9) % MCV (79.4-94.8) fl MCH (25.6-32.2) pg MCHC (32.2-35.5) g/dl RDW Std Deviation (36.4-46.3) fL Plt Count (182-369) K/mm3 MPV (9.4-12.3) fl Neut % (Auto) (34.0-71.1) % Lymph % (Auto) (19.3-51.7) % [place]anner % (Auto) (4.7-12.5) % Eos % (Auto) (0.7-5.8) Baso % (Auto) (0.1-1.2) % Neut # (Auto) (1.56-6.13) K/mm3 Lymph # (Auto) (1.18-3.74) K/mm3 [place] # (Auto) (0.24-0.36) K/mm3 Eos # (Auto) (0.04-0.36) K/mm3 Baso # (Auto) (0.01-0.08) K/mm3 PT 30.5 H (8.0-13.0) SECONDS INR 2.63 Sodium (136-145) mEq/L Potassium (3.5-5.1) mEq/L Chloride (98-107) mEq/L Carbon Dioxide (21-32) mEq/L Anion Gap (5-15) BUN (7-18) mg/dL Creatinine (0.55-1.02) mg/dL Est Cr Clr Drug Dosing mL/min Estimated GFR (MDRD) (>60) mL/min BUN/Creatinine Ratio (14-18) Glucose (83-115) mg/dL Calcium (8.5-10.1) mg/dL Magnesium (1.8-2.4) mg/dl Total Bilirubin (0.2-1.0) mg/dL AST (15-37) U/L ALT (14-59) U/L Alkaline Phosphatase (46-116) U/L Troponin I < 0.017 (0.00-0.056) ng/mL C-Reactive Protein (<1.0) mg/dL Total Protein (6.4-8.2) g/dl Albumin (3.4-5.0) g/dl Globulin gm/dL Albumin/Globulin Ratio (1-2) TSH 3rd Generation 3.645 (0.358-3.74) uIU/mL Urine Color (Yellow) Urine Appearance (Clear) Urine pH (5.0-8.0) Ur Specific [place] (1.005-1.030) Urine Protein (Negative) Urine Glucose (UA) (Negative) Urine Ketones (Negative) Urine Occult Blood (Negative) Urine Nitrite (Negative) Urine Bilirubin (Negative) Urine Urobilinogen (0.2-1.0) Ur Leukocyte Esterase (Negative) Urine RBC (0-5) /hpf Urine WBC (0-5) /hpf Ur Epithelial Cells (0-5) /hpf Urine Bacteria (FEW) /hpf Hyaline Casts (0-5) /lpf Urine Mucus (FEW) /hpf Meds: Medications Discontinued Medications Generic Name Dose Route Start Last Admin Trade Name Freq PRN Reason Stop Dose Admin Diltiazem HCl 5 mg 02/26/17 20:02 02/26/17 22:31 Diltiazem IVPUSH 02/26/17 20:03 Not Given ONETIME ONE Sodium Chloride 500 mls @ 999 mls/hr 02/26/17 17:27 02/26/17 17:37 Normal Saline IV 02/26/17 17:57 999 mls/hr .BOLUS ONE Administration Sodium Chloride 500 mls @ 999 mls/hr 02/26/17 17:42 Normal Saline IV 02/26/17 18:12 .BOLUS ONE Magnesium Sulfate 2 gm/ Premix 50 mls @ 25 mls/hr 02/26/17 18:09 IV 02/26/17 20:08 ONETIME ONE Potassium Chloride 10 meq/ 100 mls @ 100 mls/hr 02/26/17 18:12 02/26/17 18:26 Premix IV 02/26/17 19:11 100 mls/hr ASDIRECTED ONE Administration Potassium Chloride 10 meq/ 100 mls @ 100 mls/hr 02/26/17 18:16 02/26/17 19:32 Premix IV 02/26/17 19:15 100 mls/hr ASDIRECTED ONE Administration Sodium Chloride 500 mls @ 250 mls/hr 02/26/17 18:22 02/26/17 20:11 Normal Saline IV 02/26/17 20:21 250 mls/hr .BOLUS ONE Administration Magnesium Sulfate 2 gm/ Premix 50 mls @ 25 mls/hr 02/26/17 19:59 02/26/17 20: 06 IV 02/26/17 21:58 25 mls/hr ONETIME ONE Administration Sodium Chloride 250 mls @ 250 mls/hr 02/26/17 20:02 02/26/17 23:08 Normal Saline IV 02/26/17 21:01 Not Given .BOLUS ONE Sodium Chloride 10 ml 02/26/17 17:26 02/26/17 17:37 Saline Flush FLUSH 10 ml ASDIRECTED PRN Administration Keep Vein Open - Re-Assessments/Exams Free Text/Narrative Re-Assessment/Exam: Peripheral IV established with normal saline 500 mL bolus. Initial labs and studies include CBC, chem 14, magnesium, UA, CRP, one view abdomen, EKG, 1 view chest. 02/26/17 17:43 per nursing custodial reported patient's temperature was 95.1 F. With evaluation the ED patient's O2 sats dropped in the 70s thus prompting administration of O2 via nasal cannula. Believe patient may be septic. This the case phone septic protocol this would be 2400 mL of IV fluids. At this point will administer 500 male bolus with reassessment and then another 500 mils bolus thereafter. Will make a decision for additional IV fluids thereafter. EKG sinus rhythm at a rate of [address] changes noted. She is not have any chest pain but due to her age will go ahead and check a troponin. 1802 per nursing staff heart rhythm is change. When printed out it appears to be in atrial fib/flutter. Second EEG has been ordered. Ordered 20 mg of potassium. Abdominal x-ray reviewed: This is a one view flat few. Copious amounts air present with findings concerning for bowel obstruction. Reviewed with Dr. Wyatt. CXR reviewed: No acute findings noted. Unchanged from previous x-ray. Reviewed with Dr. Wyatt. 2nd bolus of fluids 500mls will be ran at 250mls/hr. Will order ct of the abdomen and pelvis IV and oral contrast. Patient does have a allergy to IV contrast thus we'll cancel the CT study at this point. Patient unable to drink any oral contrast this time. 1926 Reassessment, blood pressure 94/63 with heart rate variable 104 to 115 atrial fibrillation. On reexamination patient states she's feeling better. She is more alert. On examination of the abdomen there is no pain. When asked if she is passing gas she is. She's had no further diarrhea episodes. INR and TSH are pending. Once potassium is in will order mag 2 gram IV and another bolus of IVF. Normal saline 250 mL an hour then 125 mL an hour thereafter. 5 mg of Cardizem assuming ordered as well. Will wait to push until magnesium has been administered. 02/26/17 19:53 reassessment, patient states her mouth is feeling much more moist after receiving the IV fluids. Blood pressure 114/74 heart rate 115 bpm fluctuates 125 bpm current rhythm atrial fibrillation. 02/26/17 20:04 INR 2.63. TSH 3.6 2014 Converted to Sinus Rhythm at a rate of 88 with starting Mg. 02/26/17 20:[address] Fernández configuration management consultant Hospitalists. Discussed patient her. Believes patient may benefit from Low Dose Atenolol 25mg everyday after lunch to ensure stays out of Atrial fibrillation. No need to admit at this point. 02/26/17 22:27 discharge is related due to the potassium has approximately 40 milliliters to run in. Magnesium was ran over 2 hours. Once these have been completed. The patient up and walking see how she does prior to discharge home. 02/26/17 22:36 IV medications have been completed. Patient got up and ambulated up and down the hallway in the ED with no dizziness or issues. She is ready to be discharged home. I did speak with Raji ibarra son and is okay with this plan. [facility] has been contacted to pick the patient up to be transported back. Departure - Departure Time of Disposition: 22:38 Disposition: DC/Tfer to [facility] Condition: Good Clinical Impression: Gastroenteritis, Hypokalemia Atrial fibrillation Qualifiers: Atrial fibrillation type: paroxysmal Qualified Code(s): I48.0 - Paroxysmal atrial fibrillation - Discharge Information Prescriptions: Ondansetron [Zofran ODT] 4 mg PO Q6H PRN #20 tab.dis PRN Reason: Nausea/Vomiting Potassium Chloride 20 meq PO QAM #30 tablet.er Instructions: Viral Gastroenteritis, Adult, [id number], Nausea and Vomiting, Adult, [id number], Dehydration, Elderly, [id number], Diarrhea, Adult, Easy- to-Read Referrals: Tasha Kay MD [Primary Care Provider] - Forms: ED Department Discharge Additional Instructions: As discussed believe you have gastroenteritis which is a viral infection that will run its course over the next few days. Treatment is Zofran 4 mg every 6 hours for nausea and vomiting. Sip on Gatorade or Powerade smaller amounts more frequently throughout the day to maintain hydration. May advance to a bland diet including crackers and toast tomorrow morning if able to keep the liquids down. stay with a bland diet for the next 24 hours thereafter advancing to normal diet as tolerated. Suggest refraining from dairy products, fruit juices, raw fruits or vegetables, spicy foods, or other foods that cause aggravation. In addition you had an episode of atrial fibrillation while in the emergency department. This was controlled with electrolyte replacement and IV fluids. Potassium level was found to be low which will increase with drinking Powerade and also Gatorade. In addition will have you take potassium 20 mEq every morning. potassium levels must be checked in the next 3-4 days to ensure that they are improving. See you're PCP to have this completed. At this point will not start you on any medications to keep you out of atrial fibrillation since believe to be episodic episode. Continue taking all your home medications as prescribed. return to the ED if you develop any new or worsening symptoms. - My Orders Last 24 Hours: My Active Orders 02/26/17 17:26 Peripheral IV Insertion Adult [OM.PC] Stat 02/26/17 17:27 Peripheral IV Care [RC] . DIRECTED 02/26/17 17:28 Abdomen 1V Flat [CR] Stat Chest 1V Frontal [CR] Stat 02/26/17 18:09 EKG Documentation Completion [RC] STAT EKG Documentation Completion [RC] STAT - Assessment/Plan Last 24 Hours: My Active Orders 02/26/17 17:26 Peripheral IV Insertion Adult [OM.PC] Stat 02/26/17 17:27 Peripheral IV Care [RC] . DIRECTED 02/26/17 17:28 Abdomen 1V Flat [CR] Stat Chest 1V Frontal [CR] Stat 02/26/17 18:09 EKG Documentation Completion [RC] STAT EKG Documentation Completion [RC] STAT
[2017-02-26] MEDS ORDERED: Magnesium Sulfate/Water 2 GM in Premix Bag 1 BAG IV ONE ×2 (18:09→19:59)
[2017-02-26] MEDS ORDERED: Potassium Chloride 10 MEQ in Premix Bag 1 BAG IV ONE ×2 (18:12→18:16)
[2017-02-26] MEDS ORDERED: Sodium Chloride 0.9% 250 ML IV ONE (20:02)
[2017-02-26] MEDS ORDERED: Diltiazem 25 MG/5 ML SDV IVPUSH ONE (20:02)
--- NOTE | 2017-02-28 07:53 | CR ---
Chest: Portable view of the chest was obtained. Comparison: Prior chest x-ray of 06/24/16. Heart size and mediastinum are within normal limits for portable technique. Lungs appear clear with no acute parenchymal densities being seen. Degenerative change is noted within the right shoulder with inferior spurring at the acromioclavicular joint. No acute bony abnormality is seen. Impression: 1. Incidental findings. Nothing acute is appreciated on portable chest x-ray. Diagnostic code #2
--- NOTE | 2017-02-28 07:53 | CR ---
Abdomen: Supine view of the abdomen was obtained. Comparison: Previous abdominal x-ray of 09/18/11. Gas noted throughout the colon which appears nonobstructive. Calcifications are seen within the pelvis which are stable from prior exam likely representing combination of calcified uterine fibroid and phleboliths. Other vascular calcification is noted. Right shoulder prosthesis is seen. Mild degenerative change is noted within the spine. Impression: 1. Incidental findings. Diagnostic code #2
== END 2017-02-26 22:59 ==
LOC: JD.ED 17:01
DX: K52.9 Noninfective gastroenteritis and colitis, unspecified (principal); E87.6 Hypokalemia; I48.0 Paroxysmal atrial fibrillation; E78.00 Pure hypercholesterolemia, unspecified; I10 Essential (primary) hypertension; Z88.6 Allergy status to analgesic agent; Z88.8 Allergy status to other drugs, medicaments and biological substances; Z88.5 Allergy status to narcotic agent; Z79.01 Long term (current) use of anticoagulants; Z79.899 Other long term (current) drug therapy
CPT/HCPCS: 36415; 71010; 74000; 80053; 81001; 83735; 84443; 84484; 85025; 85610; 86140; 93005; 96361; 96365; 96366; 96368; 99285; J3480; J7040; J7050; 93010; 99284; J3475

== ENCOUNTER 2017-09-19 09:28 | Emergency (ER) | payer MEDICARE, BC ==
[2017-09-19] MEDS ORDERED: Ondansetron 4 MG/2 ML SDV IVPUSH ONE (10:03)
[2017-09-19] MEDS ORDERED: Sodium Chloride 0.9% 10 ML Syringe FLUSH PRN (10:03)
[2017-09-19] MEDS ORDERED: Sodium Chloride 0.9% 500 ML IV SCH (10:15)
--- NOTE | 2017-09-19 11:32 | CR ---
Chest: Portable view of the chest was obtained. Comparison: Prior chest x-ray of 02/26/17. Heart is slightly enlarged but accentuated from portable technique. Tortuous thoracic aorta is seen. Lungs are clear and no acute parenchymal densities. Bony structures are grossly intact. Impression: 1. Nothing acute is seen on portable chest x-ray. Diagnostic code #2
[2017-09-19] MEDS ORDERED: Metoclopramide 10 MG/2 ML SDV IVPUSH ONE (12:13)
--- NOTE | 2017-09-19 12:13 | EDM.PDOC ---
ED HPI GENERAL MEDICAL PROBLEM - General Chief Complaint: Syncope Stated Complaint: [facility] Time Seen by Provider: 09/19/17 09:42 Source of Information: Reports: Patient, EMS History Limitations: Reports: No Limitations - History of Present Illness INITIAL COMMENTS - FREE TEXT/NARRATIVE: The patient presents by [facility] from a local chiropractor's office for syncope, upper abdominal pain and nausea. She went to her chiropractor for an adjustment and when she got there she developed some epigastric abdominal pain, nausea and then she got lightheaded and nearly passed out a few times. This has happened to her before a couple times last year. Nothing every was found other then a bad valve and she has a heart murmur. She is doing good now except she has a dry mouth and she is nauseated. She has no fever but she does have chills. That is normal for her. She has no chest pain or shortness of breath. She has nausea but no vomiting. She has no abdominal pain now but she did have epigastric pain. She has no dysuria or hematuria. She has never had a heart attack in the past. Onset: Sudden Duration: Minutes: Location: Reports: Abdomen Quality: Reports: Other (Cramping) Improves with: Reports: None Worsens with: Reports: None Context: Reports: Activity (She was at her chiropractor's office) Associated Symptoms: Reports: Fever/Chills, Nausea/Vomiting. Denies: Chest Pain , Cough, Headaches, Shortness of Breath - Related Data Allergies Allergy/AdvReac Type Severity Reaction Status Date / Time acetaminophen Allergy Cannot Verified 09/19/17 10:06 [From Tylenol-Codeine #3] Remember aspirin Allergy Airway Verified 09/19/17 10:06 Tightness codeine phosphate Allergy Cannot Verified 09/19/17 10:06 [From Tylenol-Codeine #3] Remember ibuprofen [From Motrin] Allergy Cannot Verified 09/19/17 10:06 Remember lactose Allergy Cannot Verified 09/19/17 10:06 Remember nitrofurantoin Allergy Cannot Verified 09/19/17 10:06 Remember risedronate sodium Allergy Cannot Verified 09/19/17 10:06 [From Actonel] Remember ct dye Allergy Airway Uncoded 09/19/17 10:06 Tightness Home Meds: Home Meds Beta-Carotene (Vitamin A) [A-Tate-25] 25,000 unit PO DAILY 03/24/14 [History] Fluticasone Propionate [Flonase] 1 spray NASBOTH DAILY 09/02/15 [History] Gabapentin [Neurontin] 400 mg PO TID 09/02/15 [History] Ranitidine HCl [Zantac 75] 75 mg PO BEDTIME 09/02/15 [History] Benzonatate [Tessalon Perles] 200 mg PO TID PRN 10/07/15 [History] L.acidoph,Paracasei, B.lactis [Probiotic] 1 cap PO TID 10/07/15 [History] Levothyroxine Sodium [Synthroid] 25 mcg PO MOWEFR 10/07/15 [History] Levothyroxine [Synthroid] 50 mcg PO SUTUTHSA 10/07/15 [History] Methyl Salicylate/Menthol [[place]] 1 applic TOP ASDIRECTED PRN 10/07/15 [ History] Sennosides/Docusate Sodium [Senokot-S Tablet] 1 tab PO DAILY 10/07/15 [History] Simethicone [Gas-X] 80 mg PO TID PRN 10/07/15 [History] Sodium Chloride [[place] Saline] 1 spray INH BID 10/07/15 [History] Vitamin B Complex [B Complex] 1 tab PO DAILY 10/07/15 [History] Warfarin Sodium 3 mg PO SUTUTHSA 10/07/15 [History] guaiFENesin [Mucinex] 600 mg PO BID 10/07/15 [History] Acetaminophen [Tylenol Arthritis Pain] 1,300 mg PO Q8H PRN 06/24/16 [History] Acetaminophen [Tylenol] 650 mg PO Q6H PRN 06/24/16 [History] Albuterol [IJD: Albuterol HFA] 2 puff INH TID PRN 06/24/16 [History] Multivitamin with Minerals [Multivitamins with Minerals] 1 tab PO DAILY [History] Mylanta 30 ml PO QID PRN 06/24/16 [History] Polyethylene Glycol 3350 [MiraLAX] 17 gm PO ASDIRECTED PRN 06/24/16 [History] Methylcellulose [Citrucel] 500 mg PO BID 07/30/16 [History] Warfarin [Coumadin] 4.5 mg PO MOWEFR 07/30/16 [History] Ondansetron [Zofran ODT] 4 mg PO Q6H PRN #20 tab.dis 02/26/17 [Rx] Potassium Chloride 20 meq PO QAM #30 tablet.er 02/26/17 [Rx] guaiFENesin [Mucinex] 600 mg PO BID PRN 02/26/17 [History] Dextromethorphan HBr/B-Tu [Cepacol Sorethroat-Cough [place]] 1 each PO Q2HR PRN 09/19/17 [History] Methylcellulose [Citrucel] 500 mg PO BID 09/19/17 [History] Simethicone [Gas-X] 125 mg PO TID PRN 09/19/17 [History] Past Medical History HEENT History: Reports: Hard of Hearing Cardiovascular History: Reports: High Cholesterol Respiratory History: Reports: PE Other Respiratory History: DVT left leg - coumadin therapy Gastrointestinal History: Reports: GERD Genitourinary History: Reports: UTI, Recurrent [employer]ER History: Reports: Other (See Below) Other [employer] D[employer]ER History: Laparoscopy for left ovarian tumor Musculoskeletal History: Reports: Arthritis, Back Pain, Chronic, Other (See Below) Other Musculoskeletal History: calf pain, spinal stenosis Neurological History: Reports: Other (See Below) Other Neuro History: 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 - Past Surgical History HEENT Surgical History: Reports: Adenoidectomy, Naso-Sinus Surgery, Tonsillectomy Cardiovascular Surgical History: Reports: None Musculoskeletal Surgical History: Reports: Hip Replacement Social & Family History - Family History Family Medical History: Noncontributory - Tobacco Use Smoking Status *Q: Never Smoker - Caffeine Use Caffeine Use: Reports: None - Recreational Drug Use Recreational Drug Use: No - Living Situation & Occupation Living situation: Reports: Assisted Living Occupation: Retired ED ROS GENERAL - Review of Systems Review Of Systems: See Below Constitutional: Reports: Chills. Denies: Fever HEENT: Reports: No Symptoms Respiratory: Reports: No Symptoms Cardiovascular: Reports: Lightheadedness. Denies: Chest Pain Endocrine: Reports: No Symptoms GI/Abdominal: Reports: Abdominal Pain, Nausea. Denies: Diarrhea, Vomiting : Reports: No Symptoms Musculoskeletal: Reports: No Symptoms - Physical Exam Exam: See Below Exam Limited By: No Limitations General Appearance: Alert, No Apparent Distress Ears: Normal External Exam Nose: Normal Inspection Head Exam: Atraumatic, Normocephalic Neck: Normal Inspection Respiratory/Chest: No Respiratory Distress, Lungs Clear, Normal Breath Sounds Cardiovascular: Regular Rate, Rhythm, No Edema, Systolic Murmur GI/Abdominal: Soft, Non-Tender, No Organomegaly, No Mass Neuro Exam (Abbreviated): Alert, Oriented, No Motor/Sensory Deficits Back Exam: Normal Inspection Extremities: Normal Inspection EKG INTERPRETATION EKG Date: 09/19/17 Time: 09:44 Rhythm: Other (Sinus bradycardia) Rate (Beats/Min): 57 [place]: Normal P-Wave: Present QRS: Normal ST-T: Normal QT: Normal Course - Vital Signs Last Recorded V/S: Last Vital Signs Temp 97.1 F 09/19/17 09:39 Pulse 59 L 09/19/17 09:39 Resp 12 09/19/17 09:39 BP 137/68 09/19/17 09:39 Pulse Ox 90 L 09/19/17 09:39 - Orders/Labs/Meds Orders: Active Orders 24 hr Category Date Time Status Cardiac Monitoring [RC] . DIRECTED Care 09/19/17 10:03 Active EKG Documentation Completion [RC] STAT Care 09/19/17 09:37 Active Peripheral IV Care [RC] . DIRECTED Care 09/19/17 10:03 Active CULTURE URINE [RM] Stat Lab 09/19/17 13:06 Ordered UA W/MICROSCOPIC [URIN] Stat Lab 09/19/17 11:57 Ordered Sodium Chloride 0.9% [Normal Saline] 500 ml Med 09/19/17 10:15 Active IV .BOLUS Sodium Chloride 0.9% [Saline Flush] Med 09/19/17 10:03 Active 10 ml FLUSH ASDIRECTED PRN ED Antiemetic Medication Reflex [OM.PC] Stat Oth 09/19/17 10:04 Ordered Peripheral IV Insertion Adult [OM.PC] Stat Oth 09/19/17 10:03 Ordered Medication Orders Sodium Chloride (Normal Saline) 500 mls @ 1,000 mls/hr IV .BOLUS JOSSY Last Admin: 09/19/17 10:17 Dose: 1,000 mls/hr Sodium Chloride (Saline Flush) 10 ml FLUSH ASDIRECTED PRN PRN Reason: Keep Vein Open Last Admin: 09/19/17 10:17 Dose: 10 ml Labs: Laboratory Tests 09/19/17 09/19/17 09/19/17 Range/Units 10:30 10:30 11:57 WBC 8.20 (3.98-10.04) K/mm3 RBC 4.19 (3.98-5.22) M/mm3 Hgb 12.7 (11.2-15.7) gm/L Hct 40.1 (34.1-44.9) % MCV 95.7 H (79.4-94.8) fl MCH 30.3 (25.6-32.2) pg MCHC 31.7 L (32.2-35.5) g/dl RDW Std Deviation 47.0 H (36.4-46.3) fL Plt Count 236 (182-369) K/mm3 MPV 9.4 (9.4-12.3) fl Neut % (Auto) 78.6 H (34.0-71.1) % Lymph % (Auto) 13.3 L (19.3-51.7) % [place] % (Auto) 7.2 (4.7-12.5) % Eos % (Auto) 0.7 (0.7-5.8) Baso % (Auto) 0.1 (0.1-1.2) % Neut # (Auto) 6.44 H (1.56-6.13) K/mm3 Lymph # (Auto) 1.09 L (1.18-3.74) K/mm3 [place] # (Auto) 0.59 H (0.24-0.36) K/mm3 Eos # (Auto) 0.06 (0.04-0.36) K/mm3 Baso # (Auto) 0.01 (0.01-0.08) K/mm3 Sodium 141 (136-145) mEq/L Potassium 4.1 (3.5-5.1) mEq/L Chloride 106 (98-107) mEq/L Carbon Dioxide 30 (21-32) mEq/L Anion Gap 9.1 (5-15) BUN 12 (7-18) mg/dL Creatinine 0.7 (0.55-1.02) mg/dL Est Cr Clr Drug Dosing 62.50 mL/min Estimated GFR (MDRD) > 60 (>60) mL/min BUN/Creatinine Ratio 17.1 (14-18) Glucose 107 (83-115) mg/dL Calcium 8.7 (8.5-10.1) mg/dL Total Bilirubin 0.3 (0.2-1.0) mg/dL AST 22 (15-37) U/L ALT 21 (14-59) U/L Alkaline Phosphatase 59 (46-116) U/L Troponin I < 0.017 (0.00-0.056) ng/mL Total Protein 6.4 (6.4-8.2) g/dl Albumin 3.1 L (3.4-5.0) g/dl Globulin 3.3 gm/dL Albumin/Globulin Ratio 0.9 L (1-2) Lipase 98 (73-393) U/L Urine Color Yellow (Yellow) Urine Appearance Clear (Clear) Urine pH 6.0 (5.0-8.0) Ur Specific [place] 1.025 (1.005-1.030) Urine Protein Negative (Negative) Urine Glucose (UA) Negative (Negative) Urine Ketones Negative (Negative) Urine Occult Blood 1+ H (Negative) Urine Nitrite Negative (Negative) Urine Bilirubin Negative (Negative) Urine Urobilinogen 0.2 (0.2-1.0) Ur Leukocyte Esterase 1+ H (Negative) Urine RBC 0-5 (0-5) /hpf Urine WBC 5-10 H (0-5) /hpf Ur Epithelial Cells 0-5 (0-5) /hpf Urine Bacteria Few (FEW) /hpf Urine Mucus Few (FEW) /hpf Meds: Medications Generic Name Dose Route Start Last Admin Trade Name Freq PRN Reason Stop Dose Admin Sodium Chloride 500 mls @ 1,000 mls/hr 09/19/17 10:15 09/19/17 10:17 Normal Saline IV 1,000 mls/hr .BOLUS JOSSY Administration Sodium Chloride 10 ml 09/19/17 10:03 09/19/17 10:17 Saline Flush FLUSH 10 ml ASDIRECTED PRN Administration Keep Vein Open Discontinued Medications Generic Name Dose Route Start Last Admin Trade Name Freq PRN Reason Stop Dose Admin Metoclopramide HCl 10 mg 09/19/17 12:13 09/19/17 12:54 Reglan IVPUSH 09/19/17 12:14 Not Given ONETIME ONE Ondansetron HCl 4 mg 09/19/17 10:03 09/19/17 10:17 Zofran IVPUSH 09/19/17 10:04 4 mg ONETIME ONE Administration - Re-Assessments/Exams Free Text/Narrative Re-Assessment/Exam: 09/19/17 12:42 I ordered an IV NS 500mL bolus, EKG, CXR and labs. Her EKG shows a sinus bradycardia with no acute changes. Her CBC and CMP look good. Her troponin is negative. Her UA shows a possible UTI. I will get a culture. She is allergic to many medications. I do not want to give her something that will make her worse. I will call her the results. She feels much better now. Departure - Departure Time of Disposition: 13:10 Disposition: Home, Self-Care 01 Condition: Good Clinical Impression: Nausea, Near syncope Abdominal pain Qualifiers: Abdominal location: epigastric Qualified Code(s): R10.13 - Epigastric pain - Discharge Information Referrals: Tasha Kay MD [Primary Care Provider] - Forms: ED Department Discharge Additional Instructions: Drink plenty of fluids. Take your medication as prescribed. Follow up with Dr Kay in 1 week. Please return if you are worse. I will call you with the urine culture results. - My Orders Last 24 Hours: My Active Orders 09/19/17 09:37 EKG Documentation Completion [RC] STAT 09/19/17 10:03 Cardiac Monitoring [RC] . DIRECTED Peripheral IV Care [RC] . DIRECTED Sodium Chloride 0.9% [Saline Flush] 10 ml FLUSH ASDIRECTED PRN Peripheral IV Insertion Adult [OM.PC] Stat 09/19/17 10:04 ED Antiemetic Medication Reflex [OM.PC] Stat 09/19/17 10:15 Sodium Chloride 0.9% [Normal Saline] 500 ml IV .BOLUS 09/19/17 11:57 UA W/MICROSCOPIC [URIN] Stat 09/19/17 13:06 CULTURE URINE [RM] Stat - Assessment/Plan Last 24 Hours: My Active Orders 09/19/17 09:37 EKG Documentation Completion [RC] STAT 09/19/17 10:03 Cardiac Monitoring [RC] . DIRECTED Peripheral IV Care [RC] . DIRECTED Sodium Chloride 0.9% [Saline Flush] 10 ml FLUSH ASDIRECTED PRN Peripheral IV Insertion Adult [OM.PC] Stat 09/19/17 10:04 ED Antiemetic Medication Reflex [OM.PC] Stat 09/19/17 10:15 Sodium Chloride 0.9% [Normal Saline] 500 ml IV .BOLUS 09/19/17 11:57 UA W/MICROSCOPIC [URIN] Stat 09/19/17 13:06 CULTURE URINE [RM] Stat
[2017-09-19 13:50] VITALS: BP 126/64
== END 2017-09-19 13:24 | disposition home or self-care (01) ==
LOC: JD.ED 09:28
DX: R55 Syncope and collapse (principal); R11.0 Nausea; R10.13 Epigastric pain; E78.00 Pure hypercholesterolemia, unspecified; Z88.8 Allergy status to other drugs, medicaments and biological substances; Z88.5 Allergy status to narcotic agent; Z91.011 Allergy to milk products; Z79.899 Other long term (current) drug therapy; Z79.01 Long term (current) use of anticoagulants
CPT/HCPCS: 36415; 71045; 80053; 81001; 83690; 84484; 85025; 87086; 93005; 96374; 99285; J2405; J7040; J7050

== ENCOUNTER 2021-04-10 06:02 | Emergency (ER) | payer MEDICARE, BC ==
[2021-04-10] MEDS ORDERED: Sodium Chloride 0.9% 10 ML Syringe FLUSH PRN (06:23)
[2021-04-10] MEDS ORDERED: Albuterol 0.083% 2.5 MG/3 ML Neb Soln NEB ONE (06:25)
[2021-04-10] MEDS ORDERED: Albuterol/Ipratropium 3.0-0.5 MG/3 ML Neb Soln NEB ONE (07:16)
[2021-04-10] MEDS ORDERED: methylPREDNISolone Sodium Succinate 125 MG/2 ML SDV IVPUSH ONE (07:16)
[2021-04-10 08:14] LABS: CORONAVIRUS COVID-19 NAA NEGATIVE (NEGATIVE)
[2021-04-10 10:15] VITALS: BP 113/72; PULSE 76
== END 2021-04-10 10:03 | disposition home or self-care (01) ==
LOC: JD.ED 06:02
DX: R07.89 Other chest pain (principal); R55 Syncope and collapse; K21.9 Gastro-esophageal reflux disease without esophagitis; E03.9 Hypothyroidism, unspecified; Z91.011 Allergy to milk products; Z91.041 Radiographic dye allergy status; Z88.5 Allergy status to narcotic agent; Z88.8 Allergy status to other drugs, medicaments and biological substances; Z79.899 Other long term (current) drug therapy; Z20.822 Contact with and (suspected) exposure to COVID-19
CPT/HCPCS: 0240U; 36415; 71045; 80053; 84484; 85025; 85610; 85730; 86140; 93005; 94640; 96374; 99285; J2930; 93010; J7620-GY

== ENCOUNTER 2021-05-17 07:58 | Emergency (ER) | payer MEDICARE, BC ==
[2021-05-17 10:05] LABS: CORONAVIRUS COVID-19 NAA POSITIVE (NEGATIVE)
[2021-05-17 12:24] VITALS: BP 114/54
[2021-05-17 15:50] VITALS: PULSE 76
== END 2021-05-17 15:41 | disposition home or self-care (01) ==
LOC: JD.ED 07:58
DX: U07.1 COVID-19 (principal); E78.00 Pure hypercholesterolemia, unspecified; Z88.5 Allergy status to narcotic agent; Z88.8 Allergy status to other drugs, medicaments and biological substances; Z91.011 Allergy to milk products; Z91.041 Radiographic dye allergy status; Z88.1 Allergy status to other antibiotic agents; Z79.899 Other long term (current) drug therapy; Z79.01 Long term (current) use of anticoagulants
CPT/HCPCS: 0240U; 36415; 71046; 71046-26; 80053; 82728; 83615; 85025; 86140; 99283-25; 99284

== ENCOUNTER 2021-11-26 19:49 | Emergency (ER) | payer MEDICARE, BC ==
[2021-11-26] MEDS ORDERED: Sodium Chloride 0.9% 1,000 ML IV SCH (20:00)
[2021-11-27 00:04] VITALS: BP 133/63; PULSE 82
== END 2021-11-26 23:55 | disposition home or self-care (01) ==
LOC: JD.ED 19:49
DX: K92.2 Gastrointestinal hemorrhage, unspecified (principal); Z88.6 Allergy status to analgesic agent; Z88.5 Allergy status to narcotic agent; Z91.011 Allergy to milk products; Z88.8 Allergy status to other drugs, medicaments and biological substances; Z91.041 Radiographic dye allergy status; Z79.899 Other long term (current) drug therapy; Z79.01 Long term (current) use of anticoagulants; Z90.49 Acquired absence of other specified parts of digestive tract
CPT/HCPCS: 36415; 80053; 85007; 85027; 85610; 85730; 86850; 86900; 86901; 96360; 96361; 99283; J7030

== ENCOUNTER 2021-11-27 12:30 | Inpatient (IN) | payer MEDICARE, BC ==
[2021-11-27] MEDS ORDERED: Sodium Chloride 0.9% 10 ML Syringe FLUSH PRN (13:18)
[2021-11-27] MEDS ORDERED: Sodium Chloride 0.9% 1,000 ML IV ONE (13:32)
[2021-11-27 15:07] LABS: ESTIMATED GFR 84 mL/min (>60)
[2021-11-27] MEDS ORDERED: Ondansetron 4 MG Tab.DIS PO PRN ×2 (16:02→17:00)
[2021-11-27] MEDS ORDERED: Benzonatate 100 MG Cap PO PRN (17:00)
[2021-11-27] MEDS ORDERED: guaiFENesin 600 MG Tab.ER PO PRN (17:00)
[2021-11-27] MEDS ORDERED: Albuterol 6.7 GM Inhaler INH PRN (17:00)
[2021-11-27] MEDS ORDERED: Polyethylene Glycol 3350 Powder 17 GM Packet PO PRN (17:00)
[2021-11-27] MEDS ORDERED: Carboxymethylcellulose Sodium 1% Ophth Gel 15 ML Bottle EYEBOTH PRN (17:00)
[2021-11-27] MEDS: Gabapentin 100 MG Cap PO SCH (20:59)
[2021-11-27] MEDS: Gabapentin 300 MG Cap PO SCH (20:59)
[2021-11-27] MEDS: Sodium Chloride 0.65% Nasal Spray 45 ML Bottle NAS SCH (20:59)
[2021-11-27] MEDS: Sodium Chloride 0.9% 1,000 ML IV SCH (21:02)
[2021-11-27] MEDS: Fluticasone NASAL Spray 16 GM Bottle NASBOTH SCH (21:28)
[2021-11-28] MEDS: Levothyroxine 50 MCG Tab PO SCH (05:09)
[2021-11-28] MEDS: Gabapentin 300 MG Cap PO SCH ×3 (07:27→18:03)
[2021-11-28] MEDS: Sodium Chloride 0.9% 1,000 ML IV SCH ×2 (07:27→21:01)
[2021-11-28] MEDS: Gabapentin 100 MG Cap PO SCH ×3 (07:27→18:03)
[2021-11-28] MEDS: Sodium Chloride 0.65% Nasal Spray 45 ML Bottle NAS SCH ×2 (08:36→21:01)
[2021-11-28] MEDS: Pantoprazole 40 MG Tab.CR PO SCH (08:36)
[2021-11-28] MEDS: Fluticasone NASAL Spray 16 GM Bottle NASBOTH SCH (18:21)
[2021-11-29] MEDS: Gabapentin 300 MG Cap PO SCH ×3 (06:26→18:44)
[2021-11-29] MEDS: Gabapentin 100 MG Cap PO SCH ×3 (06:26→18:44)
[2021-11-29] MEDS: Levothyroxine 50 MCG Tab PO SCH (06:26)
[2021-11-29] MEDS: Pantoprazole 40 MG Tab.CR PO SCH (09:08)
[2021-11-29] MEDS: Sodium Chloride 0.65% Nasal Spray 45 ML Bottle NAS SCH ×2 (09:08→22:15)
[2021-11-29] MEDS: Sodium Chloride 0.9% 1,000 ML IV SCH ×2 (09:44→22:25)
[2021-11-29] MEDS: Fluticasone NASAL Spray 16 GM Bottle NASBOTH SCH (18:44)
[2021-11-30] MEDS ORDERED: Levothyroxine 25 MCG Tab PO SCH ×2 (06:00→09:15)
[2021-11-30] MEDS: Gabapentin 300 MG Cap PO SCH ×3 (08:54→18:13)
[2021-11-30] MEDS: Sodium Chloride 0.65% Nasal Spray 45 ML Bottle NAS SCH ×2 (08:55→20:47)
[2021-11-30] MEDS: Gabapentin 100 MG Cap PO SCH ×3 (08:55→18:13)
[2021-11-30] MEDS: Pantoprazole 40 MG Tab.CR PO SCH (08:55)
[2021-11-30] MEDS ORDERED: Albuterol 6.7 GM Inhaler INH PRN (09:52)
[2021-11-30] MEDS: Sodium Chloride 0.9% 1,000 ML IV SCH (13:48)
[2021-11-30] MEDS: Fluticasone NASAL Spray 16 GM Bottle NASBOTH SCH (18:13)
[2021-12-01] MEDS: Levothyroxine 50 MCG Tab PO SCH (06:25)
[2021-12-01] MEDS: Gabapentin 300 MG Cap PO SCH ×2 (06:25→13:32)
[2021-12-01] MEDS: Gabapentin 100 MG Cap PO SCH ×2 (06:27→13:32)
[2021-12-01] MEDS: Sodium Chloride 0.65% Nasal Spray 45 ML Bottle NAS SCH (09:35)
[2021-12-01] MEDS: Pantoprazole 40 MG Tab.CR PO SCH (09:35)
[2021-12-01 12:18] VITALS: BP 116/42; PULSE 66
== END 2021-12-01 14:00 | disposition home or self-care (01) | DRG 378 ==
LOC: JD.ED 12:30 → JD.MS 15:25
PROVIDERS: ADMIT Internal Medicine; ATTEND Internal Medicine
PROC: 0DJD8ZZ Inspection of Lower Intestinal Tract, Via Natural or Artificial Opening Endoscopic (ICD-10-PCS; principal; 2021-11-30)
DX: K62.5 Hemorrhage of anus and rectum (principal); K57.31 Diverticulosis of large intestine without perforation or abscess with bleeding; D62 Acute posthemorrhagic anemia; I48.91 Unspecified atrial fibrillation; G47.34 Idiopathic sleep related nonobstructive alveolar hypoventilation; K64.9 Unspecified hemorrhoids; E78.00 Pure hypercholesterolemia, unspecified; K21.9 Gastro-esophageal reflux disease without esophagitis; M19.90 Unspecified osteoarthritis, unspecified site; G89.29 Other chronic pain; M48.061 Spinal stenosis, lumbar region without neurogenic claudication; F41.9 Anxiety disorder, unspecified; Z96.649 Presence of unspecified artificial hip joint; F32.A Depression, unspecified; E03.9 Hypothyroidism, unspecified; Z90.89 Acquired absence of other organs; Z79.899 Other long term (current) drug therapy; Z86.718 Personal history of other venous thrombosis and embolism; Z86.711 Personal history of pulmonary embolism; Z79.01 Long term (current) use of anticoagulants; Z86.16 Personal history of COVID-19; Z87.440 Personal history of urinary (tract) infections; Z88.8 Allergy status to other drugs, medicaments and biological substances; Z79.890 Hormone replacement therapy; Z88.6 Allergy status to analgesic agent; Z88.5 Allergy status to narcotic agent; Z91.011 Allergy to milk products; Z88.2 Allergy status to sulfonamides; Z91.041 Radiographic dye allergy status; Z90.49 Acquired absence of other specified parts of digestive tract; Z90.710 Acquired absence of both cervix and uterus; Z95.2 Presence of prosthetic heart valve
CPT/HCPCS: 36415; 80053; 83735; 85025; 85610; 96360; 99284; J3490; J7030; 80048; 85014; 85018; 85027; 86850; 86900; 86901; 87641; 93005; 99283; A9270-GY

== ENCOUNTER 2021-12-04 00:26 | Emergency (ER) | payer MEDICARE, BC ==
[2021-12-04] MEDS ORDERED: Sodium Chloride 0.9% 10 ML Syringe FLUSH PRN (01:03)
[2021-12-04 01:55] LABS: ESTIMATED GFR 84 mL/min (>60)
[2021-12-04] MEDS ORDERED: Sodium Chloride 0.9% 1,000 ML IV SCH (07:30)
[2021-12-04] MEDS ORDERED: Furosemide 40 MG/4 ML VIAL IVPUSH ONE (11:46)
[2021-12-04 13:01] LABS: CORONAVIRUS COVID-19 NAA NEGATIVE (NEGATIVE)
[2021-12-04 14:08] VITALS: BP 94/56; PULSE 69
[2021-12-05] MEDS ORDERED: Furosemide 40 MG/4 ML VIAL IVPUSH SCH (09:00)
== END 2021-12-04 14:24 ==
LOC: JD.ED 00:26
DX: I21.4 Non-ST elevation (NSTEMI) myocardial infarction (principal); I25.10 Atherosclerotic heart disease of native coronary artery without angina pectoris; K92.2 Gastrointestinal hemorrhage, unspecified; D62 Acute posthemorrhagic anemia; I50.9 Heart failure, unspecified; R79.89 Other specified abnormal findings of blood chemistry; E78.00 Pure hypercholesterolemia, unspecified; F41.9 Anxiety disorder, unspecified; F32.A Depression, unspecified; E03.9 Hypothyroidism, unspecified; Z88.6 Allergy status to analgesic agent; Z88.8 Allergy status to other drugs, medicaments and biological substances; Z88.5 Allergy status to narcotic agent; Z20.822 Contact with and (suspected) exposure to COVID-19; Z79.899 Other long term (current) drug therapy
CPT/HCPCS: 0240U; 36415; 36430; 71045; 80053; 83735; 83880; 84484; 85025; 85610; 86850; 86900; 86901; 86922; 93005; 94762; 96361; 96374; 99285; J1940; J3490; J7030; P9016; 93010

== ENCOUNTER 2021-12-25 19:18 | Emergency (ER) | payer MEDICARE, BC ==
[2021-12-25] MEDS ORDERED: Sodium Chloride 0.9% 1,000 ML IV ONE (19:57)
[2021-12-25 20:22] LABS: ESTIMATED GFR 72 mL/min (>60)
[2021-12-25] MEDS ORDERED: Piperacillin/Tazobactam 4.5 GM in Sodium Chloride 0.9% 100 ML IV ONE (21:10)
[2021-12-25] MEDS ORDERED: Heparin Sodium/D5W 25,000 UNITS/500 ML BAG IV SCH ×2 (21:30→21:43)
[2021-12-25] MEDS ORDERED: Heparin Sodium 5,000 Units/ML Vial IVPUSH ONE (21:30)
[2021-12-26 00:36] VITALS: BP 107/66; PULSE 97
== END 2021-12-26 00:36 ==
LOC: JD.ED 19:18
DX: I21.4 Non-ST elevation (NSTEMI) myocardial infarction (principal); I25.2 Old myocardial infarction; Z88.6 Allergy status to analgesic agent; Z88.5 Allergy status to narcotic agent; Z91.011 Allergy to milk products; Z91.041 Radiographic dye allergy status; Z88.2 Allergy status to sulfonamides; Z88.8 Allergy status to other drugs, medicaments and biological substances; Z79.899 Other long term (current) drug therapy; Z90.49 Acquired absence of other specified parts of digestive tract; Z90.710 Acquired absence of both cervix and uterus; Z86.16 Personal history of COVID-19
CPT/HCPCS: 36415; 70450; 71045; 71250; 74176; 80053; 81001; 83605; 83690; 83880; 84145; 84484; 85025; 85610; 85730; 86850; 86900; 86901; 87040; 93005; 96361; 96365; 96366; 96367; 99285; J1644; J2543; J7030

== ENCOUNTER 2022-05-09 16:01 | Inpatient (IN) | payer MEDICARE, BC ==
[2022-05-09 17:24] LABS: ESTIMATED GFR 40 mL/min (>60)
[2022-05-09] MEDS ORDERED: Sodium Chloride 0.9% 500 ML IV ONE (17:28)
[2022-05-09 17:37] LABS: CORONAVIRUS COVID-19 NAA NEGATIVE (NEGATIVE)
[2022-05-09] MEDS ORDERED: Iopamidol 755 Mg/ML 100 ML Bottle IVPUSH ONE (17:46)
[2022-05-09] MEDS ORDERED: Sodium Chloride 0.9% 10 ML Syringe FLUSH ONE (18:00)
[2022-05-09] MEDS ORDERED: methylPREDNISolone Sodium Succinate 125 MG/2 ML SDV IVPUSH ONE (18:18)
[2022-05-09] MEDS ORDERED: diphenhydrAMINE 50 MG/ML SDV IV ONE (18:18)
[2022-05-09] MEDS ORDERED: Famotidine 20 MG/2 ML SDV IVPUSH ONE (18:18)
[2022-05-09] MEDS ORDERED: Sodium Chloride 0.9% 1,000 ML IV SCH (23:45)
[2022-05-10] MEDS ORDERED: Witch Hazel Medicated Pads 40/Jar TOP PRN (07:38)
[2022-05-10] MEDS ORDERED: Bisacodyl 10 MG Supp RECTAL PRN (07:38)
[2022-05-10] MEDS ORDERED: Polyethylene Glycol 3350 Powder 17 GM Packet PO PRN (07:38)
[2022-05-10] MEDS ORDERED: Levothyroxine 25 MCG Tab PO SCH (07:45)
[2022-05-10] MEDS ORDERED: atorvaSTATin 40 MG Tab PO SCH (09:00)
[2022-05-10] MEDS ORDERED: Aspirin 81 MG Tab.EC PO SCH (09:00)
[2022-05-10] MEDS ORDERED: Saccharomyces Boulardii (Probiotic) 250 MG Cap PO SCH (09:00)
[2022-05-10] MEDS ORDERED: Metoprolol Succinate 25 MG Tab.ER PO SCH (09:00)
[2022-05-10] MEDS ORDERED: Gabapentin 300 MG Cap PO SCH (09:00)
[2022-05-10] MEDS ORDERED: Gabapentin 100 MG Cap PO SCH (09:00)
[2022-05-10] MEDS ORDERED: Amiodarone 200 MG Tab PO SCH (09:00)
[2022-05-10] MEDS ORDERED: Torsemide 20 MG Tab PO SCH (09:00)
[2022-05-10] MEDS ORDERED: Clopidogrel 75 MG Tab PO SCH (09:00)
[2022-05-10 10:42] VITALS: BP 113/54; PULSE 63
[2022-05-10] MEDS ORDERED: predniSONE 20 MG Tab PO ONE (11:59)
[2022-05-10] MEDS ORDERED: Pramipexole 0.5 MG Tab PO SCH (21:00)
[2022-05-11] MEDS ORDERED: Levothyroxine 50 MCG Tab PO SCH (06:00)
[2022-05-11] MEDS ORDERED: Pantoprazole 40 MG Tab.CR PO SCH (07:00)
== END 2022-05-10 14:36 | disposition other institution (70) | DRG 682 ==
LOC: JD.ED 16:01 → JD.MS 20:57
PROVIDERS: ADMIT Internal Medicine; ATTEND Internal Medicine
DX: N17.9 Acute kidney failure, unspecified (principal); I50.31 Acute diastolic (congestive) heart failure; J98.11 Atelectasis; E78.5 Hyperlipidemia, unspecified; J45.909 Unspecified asthma, uncomplicated; E78.00 Pure hypercholesterolemia, unspecified; K21.9 Gastro-esophageal reflux disease without esophagitis; Z99.81 Dependence on supplemental oxygen; I35.0 Nonrheumatic aortic (valve) stenosis; G89.29 Other chronic pain; M54.9 Dorsalgia, unspecified; F41.9 Anxiety disorder, unspecified; F32.A Depression, unspecified; F43.10 Post-traumatic stress disorder, unspecified; Z87.440 Personal history of urinary (tract) infections; J30.9 Allergic rhinitis, unspecified; H91.90 Unspecified hearing loss, unspecified ear; E03.9 Hypothyroidism, unspecified; J20.8 Acute bronchitis due to other specified organisms; I48.0 Paroxysmal atrial fibrillation; D64.9 Anemia, unspecified; M19.90 Unspecified osteoarthritis, unspecified site; E11.9 Type 2 diabetes mellitus without complications; M54.16 Radiculopathy, lumbar region; Z20.822 Contact with and (suspected) exposure to COVID-19; Z96.649 Presence of unspecified artificial hip joint; R09.02 Hypoxemia; I25.2 Old myocardial infarction; Z79.82 Long term (current) use of aspirin; Z86.718 Personal history of other venous thrombosis and embolism; Z85.43 Personal history of malignant neoplasm of ovary; Z79.899 Other long term (current) drug therapy; Z88.6 Allergy status to analgesic agent; Z88.8 Allergy status to other drugs, medicaments and biological substances; Z88.5 Allergy status to narcotic agent; Z91.041 Radiographic dye allergy status; Z91.011 Allergy to milk products; Z79.01 Long term (current) use of anticoagulants; Z86.711 Personal history of pulmonary embolism; Z98.890 Other specified postprocedural states; Z90.89 Acquired absence of other organs; Z90.710 Acquired absence of both cervix and uterus; Z90.49 Acquired absence of other specified parts of digestive tract; Z79.02 Long term (current) use of antithrombotics/antiplatelets; Z79.890 Hormone replacement therapy
CPT/HCPCS: 0240U; 36415; 71045; 71275; 80048; 80053; 83605; 83880; 84484; 85007; 85027; 85379; 86140; 87641; 93005; 94761; 93010; 96374; 96375; 99222; 99284; 99285-25; A9270-GY; J1200; J2930; J3490; J7030; J7512; Q9967

== ENCOUNTER 2022-05-24 14:13 | Emergency (ER) | payer MEDICARE, BC ==
[2022-05-24 14:24] VITALS: PULSE 38
[2022-05-24] MEDS ORDERED: Sodium Chloride 0.9% 10 ML Syringe FLUSH PRN (14:32)
[2022-05-24] MEDS ORDERED: Ondansetron 4 MG/2 ML SDV IVPUSH ONE (14:32)
[2022-05-24] MEDS ORDERED: Atropine 0.4 MG/ML SDV IVPUSH ONE ×2 (14:34→17:43)
[2022-05-24] MEDS ORDERED: Sodium Chloride 0.9% 1,000 ML IV SCH (14:45)
[2022-05-24] MEDS ORDERED: Atropine 0.1 MG/ML 10 ML Syringe ONE (14:47)
[2022-05-24 15:36] LABS: CORONAVIRUS COVID-19 NAA NEGATIVE (NEGATIVE)
[2022-05-24 20:01] VITALS: BP 102/30
== END 2022-05-24 18:45 | disposition critical access hospital (66) ==
LOC: JD.ED 14:13
DX: A08.4 Viral intestinal infection, unspecified (principal); E86.0 Dehydration; N28.9 Disorder of kidney and ureter, unspecified; I44.1 Atrioventricular block, second degree; I50.9 Heart failure, unspecified; I25.10 Atherosclerotic heart disease of native coronary artery without angina pectoris; E78.00 Pure hypercholesterolemia, unspecified; I25.2 Old myocardial infarction; K21.9 Gastro-esophageal reflux disease without esophagitis; E11.9 Type 2 diabetes mellitus without complications; E03.9 Hypothyroidism, unspecified; Z88.6 Allergy status to analgesic agent; Z88.8 Allergy status to other drugs, medicaments and biological substances; Z88.5 Allergy status to narcotic agent; Z91.011 Allergy to milk products; Z88.1 Allergy status to other antibiotic agents; Z88.2 Allergy status to sulfonamides; Z91.041 Radiographic dye allergy status; Z79.01 Long term (current) use of anticoagulants; Z79.899 Other long term (current) drug therapy; Z79.82 Long term (current) use of aspirin; Z79.02 Long term (current) use of antithrombotics/antiplatelets; Z20.822 Contact with and (suspected) exposure to COVID-19
CPT/HCPCS: 0241U; 36415; 71045; 80053; 83735; 84484; 85025; 93005; 96361; 96374; 96375; 96376; 99285; J0461; J2405; J3490; J7030; 93010

== ENCOUNTER 2023-01-16 09:36 | Emergency (ER) | payer MEDICARE, BC ==
[2023-01-16] MEDS ORDERED: Sodium Chloride 0.9% 10 ML Syringe FLUSH PRN (10:04)
[2023-01-16] MEDS ORDERED: Aspirin 81 MG Tab.Chew PO ONE (10:07)
[2023-01-16 10:33] LABS: BASOPHILS PERCENT AUTO 0.1 % (0.0-1.0); EOSINOPHILS ABSOLUTE AUTO 0.1 K/mm3 (0.0-0.4); HEMATOCRIT 39.3 % (37.0-47.0); HEMOGLOBIN 12.2 gm/dl (12.0-16.0); IMMATURE GRAN ABSOLUTE AUTO 0.03 K/mm3 (0.00-0.05); IMMATURE GRAN PERCENT AUTO 0.3 % (0.0-0.4); LYMPHOCYTES ABSOLUTE AUTO 1.9 K/mm3 (1.0-4.8); LYMPHOCYTES PERCENT AUTO 19.6 % (24.0-44.0); MEAN CORPUSCULAR HEMOGLOBIN 31.7 pg (28.0-32.0); MEAN CORPUSCULAR VOLUME 102.1 fl (83.0-99.0); MONOCYTES ABSOLUTE AUTO 0.8 K/mm3 (0.0-0.8); MONOCYTES PERCENT AUTO 8.2 % (0.0-8.0); NEUTROPHILS ABSOLUTE AUTO 6.8 K/mm3 (1.8-7.7); NEUTROPHILS PERCENT AUTO 70.8 % (41.0-71.0); PLATELET COUNT,PLT 214 K/mm3 (150-400); RED BLOOD CELL COUNT 3.85 M/mm3 (4.10-5.30); WHITE BLOOD CELL COUNT,WBC 9.64 K/mm3 (3.9-11.3)
[2023-01-16 10:44] LABS: INR 0.98; PROTHROMBIN TIME 10.5 SECONDS (9.7-12.0)
[2023-01-16 10:48] LABS: D-DIMER QUANTITATIVE 1.76 mg/L (0.19-0.50)
[2023-01-16 10:51] LABS: A/G RATIO 0.9 (1-2); ALBUMIN 3.4 g/dl (3.4-5.0); BILIRUBIN TOTAL 0.4 mg/dL (0.2-1.0); BUN/CREATININE RATIO 21.8 (14-18); CREATININE 1.1 mg/dL (0.55-1.02); EST CRCL DRUG DOSING (CG) 36.35 mL/min; MAGNESIUM 2.1 mg/dL (1.8-2.4); PROTEIN TOTAL,TP 7.4 g/dl (6.4-8.2)
[2023-01-16 10:52] LABS: CALCIUM 9.6 mg/dL (8.5-10.1)
[2023-01-16] MEDS ORDERED: Sodium Chloride 0.9% 10 ML Syringe FLUSH ONE (11:04)
[2023-01-16] MEDS ORDERED: Iopamidol 755 Mg/ML 100 ML Bottle IVPUSH ONE (11:04)
[2023-01-16] MEDS ORDERED: Sodium Chloride 0.9% 100 ML IV SCH (11:15)
[2023-01-16] MEDS ORDERED: diphenhydrAMINE 50 MG/ML SDV IVPUSH ONE (11:28)
[2023-01-16 15:09] VITALS: BP 139/53; PULSE 61
== END 2023-01-16 15:04 | disposition home or self-care (01) ==
LOC: JD.ED 09:36
DX: R07.9 Chest pain, unspecified (principal); E78.00 Pure hypercholesterolemia, unspecified; I25.10 Atherosclerotic heart disease of native coronary artery without angina pectoris; I25.2 Old myocardial infarction; I50.9 Heart failure, unspecified; K21.9 Gastro-esophageal reflux disease without esophagitis; E03.9 Hypothyroidism, unspecified; E11.9 Type 2 diabetes mellitus without complications; Z86.16 Personal history of COVID-19; Z91.041 Radiographic dye allergy status; Z88.2 Allergy status to sulfonamides; Z91.011 Allergy to milk products; Z88.8 Allergy status to other drugs, medicaments and biological substances; Z88.5 Allergy status to narcotic agent; Z88.6 Allergy status to analgesic agent; Z79.82 Long term (current) use of aspirin; Z79.899 Other long term (current) drug therapy
CPT/HCPCS: 36415; 71045; 71275; 80053; 83735; 83880; 84484; 85025; 85379; 85610; 93005; 96374; 99285; A9270; J1200; J3490; Q9967; 93010; 99284

== ENCOUNTER 2023-06-27 17:39 | Emergency (ER) | payer MEDICARE, BC ==
[2023-06-27 18:17] LABS: BASOPHILS PERCENT AUTO 0.2 % (0.0-1.0); EOSINOPHILS ABSOLUTE AUTO 0.1 K/mm3 (0.0-0.4); EOSINOPHILS PERCENT AUTO 0.9 % (0.0-6.0); HEMATOCRIT 37.2 % (37.0-47.0); HEMOGLOBIN 11.8 gm/dl (12.0-16.0); IMMATURE GRAN ABSOLUTE AUTO 0.03 K/mm3 (0.00-0.05); IMMATURE GRAN PERCENT AUTO 0.3 % (0.0-0.4); LYMPHOCYTES ABSOLUTE AUTO 2.2 K/mm3 (1.0-4.8); LYMPHOCYTES PERCENT AUTO 20.3 % (24.0-44.0); MEAN CORPUSCULAR HGB CONC 31.7 g/dl (32.0-36.0); MEAN CORPUSCULAR VOLUME 97.6 fl (83.0-99.0); MEAN PLATELET VOLUME 10.1 fl (9.4-12.3); MONOCYTES ABSOLUTE AUTO 0.9 K/mm3 (0.0-0.8); NEUTROPHILS ABSOLUTE AUTO 7.6 K/mm3 (1.8-7.7); NEUTROPHILS PERCENT AUTO 70.3 % (41.0-71.0); PLATELET COUNT,PLT 187 K/mm3 (150-400); RED BLOOD CELL COUNT 3.81 M/mm3 (4.10-5.30); WHITE BLOOD CELL COUNT,WBC 10.77 K/mm3 (3.9-11.3)
[2023-06-27] MEDS: Sodium Chloride 0.9% 10 ML Syringe FLUSH PRN (18:21)
[2023-06-27 18:38] LABS: A/G RATIO 0.9 (1-2); ALANINE AMINOTRANSFERASE,ALT 44 U/L (14-59); ALBUMIN 3.2 g/dl (3.4-5.0); ALKALINE PHOSPHATASE 84 U/L (46-116); ANION GAP 9.8 (5-15); ASPARTATE AMNIOTRANSFERASE,AST 27 U/L (15-37); BILIRUBIN TOTAL 0.4 mg/dL (0.2-1.0); BLOOD UREA NITROGEN,BUN 20 mg/dL (7-18); BUN/CREATININE RATIO 18.2 (14-18); C-REACTIVE PROTEIN 0.84 mg/dL (<0.30); CALCIUM 8.7 mg/dL (8.5-10.1); CARBON DIOXIDE,CO2 30 mEq/L (21-32); CHLORIDE,CL 104 mEq/L (98-107); CREATININE 1.1 mg/dL (0.55-1.02); ESTIMATED GFR 48 mL/min (>60); GLUCOSE RANDOM 113 mg/dL (70-99); POTASSIUM,K 3.8 mEq/L (3.5-5.1); PROTEIN TOTAL,TP 6.7 g/dl (6.4-8.2); SODIUM,NA 140 mEq/L (136-145); TROPONIN I HIGH SENSITIVITY 13 pg/mL (<=51)
[2023-06-27 19:51] LABS: CORONAVIRUS COVID-19 NAA NEGATIVE (NEGATIVE); INFLUENZA A NAA NEGATIVE (NEGATIVE); RESPIRATORY SYNCYTIAL VIR NAA NEGATIVE (NEGATIVE)
[2023-06-27 20:12] LABS: APPEARANCE,URINE SLT CLOUDY (Clear); BILIRUBIN,URINE NEGATIVE (Negative); COLOR,URINE YELLOW (Yellow); GLUCOSE,URINE NEGATIVE (Negative); KETONES,URINE NEGATIVE (Negative); LEUKOCYTE ESTERASE,URINE 3+ (Negative); NITRITE,URINE NEGATIVE (Negative); OCCULT BLOOD,URINE TRACE-LYSED (Negative); PROTEIN,URINE TRACE (Negative); UROBILINOGEN,URINE 0.2 (0.2-1.0)
[2023-06-27 20:29] LABS: BACTERIA,URINE MODERATE /hpf (FEW); MUCUS,URINE FEW /hpf (FEW); WBC,URINE 40-50 /hpf (0-5)
[2023-06-27] MEDS: Cephalexin 500 MG Cap PO ONE (20:50)
[2023-06-27 21:13] VITALS: BP 132/76; PULSE 77
== END 2023-06-27 21:13 | disposition home or self-care (01) ==
LOC: JD.ED 17:39
DX: N30.00 Acute cystitis without hematuria (principal); I25.10 Atherosclerotic heart disease of native coronary artery without angina pectoris; I50.9 Heart failure, unspecified; E78.00 Pure hypercholesterolemia, unspecified; I25.2 Old myocardial infarction; K21.9 Gastro-esophageal reflux disease without esophagitis; E11.9 Type 2 diabetes mellitus without complications; E03.9 Hypothyroidism, unspecified; Z88.8 Allergy status to other drugs, medicaments and biological substances; Z88.6 Allergy status to analgesic agent; Z88.5 Allergy status to narcotic agent; Z88.2 Allergy status to sulfonamides; Z91.011 Allergy to milk products; Z91.041 Radiographic dye allergy status; Z79.899 Other long term (current) drug therapy; Z79.82 Long term (current) use of aspirin; Z86.16 Personal history of COVID-19; Z90.49 Acquired absence of other specified parts of digestive tract
CPT/HCPCS: 0241U; 36415; 71045; 80053; 81001; 84484; 85025; 86140; 87086; 93005; 99285; A9270; J3490

== ENCOUNTER 2024-12-21 16:49 | Inpatient (IN) | payer MEDICARE, BC ==
[2024-12-21] MEDS ORDERED: Sodium Chloride 0.9% 10 ML Syringe FLUSH PRN (17:13)
[2024-12-21 17:50] LABS: BASOPHILS ABSOLUTE AUTO 0.0 K/mm3 (0.0-0.2); BASOPHILS PERCENT AUTO 0.5 % (0.0-1.0); EOSINOPHILS ABSOLUTE AUTO 0.2 K/mm3 (0.0-0.4); EOSINOPHILS PERCENT AUTO 1.8 % (0.0-6.0); IMMATURE GRAN ABSOLUTE AUTO 0.04 K/mm3 (0.00-0.05); IMMATURE GRAN PERCENT AUTO 0.5 % (0.0-0.4); LYMPHOCYTES ABSOLUTE AUTO 1.7 K/mm3 (1.0-4.8); LYMPHOCYTES PERCENT AUTO 20.4 % (24.0-44.0); MEAN PLATELET VOLUME 9.8 fl (9.4-12.3); MONOCYTES ABSOLUTE AUTO 0.8 K/mm3 (0.0-0.8); MONOCYTES PERCENT AUTO 9.9 % (0.0-8.0); NEUTROPHILS ABSOLUTE AUTO 5.7 K/mm3 (1.8-7.7); NEUTROPHILS PERCENT AUTO 66.9 % (41.0-71.0); NRBC ABSOLUTE 0.00 (0.00-0.02); NRBC PERCENT 0.0 % (0.0-0.2); PLATELET COUNT,PLT 242 K/mm3 (150-400); RED BLOOD CELL COUNT 3.58 M/mm3 (4.10-5.30); WHITE BLOOD CELL COUNT,WBC 8.48 K/mm3 (3.9-11.3)
[2024-12-21] MEDS: droPERidol 2.5 MG/ML SDV IV ONE (17:53)
[2024-12-21 18:33] LABS: A/G RATIO 0.9 (1-2); ALANINE AMINOTRANSFERASE,ALT 20.0 U/L (14-59); ASPARTATE AMNIOTRANSFERASE,AST 18.0 U/L (15-37); BILIRUBIN TOTAL 0.4 mg/dL (0.2-1.0); BLOOD UREA NITROGEN,BUN 18.0 mg/dL (7-18); CARBON DIOXIDE,CO2 33.0 mEq/L (21-32); CHLORIDE,CL 107.0 mEq/L (98-107); CREATININE 1.0 mg/dL (0.55-1.02); EST CRCL DRUG DOSING (CG) 35.7 mL/min; ESTIMATED GFR 54.0 mL/min (>60); GLUCOSE RANDOM 125.0 mg/dL (70-99); POTASSIUM,K 4.0 mEq/L (3.5-5.1); PROTEIN TOTAL,TP 6.7 g/dl (6.4-8.2); SODIUM,NA 144.0 mEq/L (136-145)
[2024-12-21 18:53] LABS: TROPONIN I HIGH SENSITIVITY 13.0 pg/mL (<=51)
[2024-12-21 19:28] LABS: CORONAVIRUS COVID-19 NAA NEGATIVE (NEGATIVE); INFLUENZA A NAA NEGATIVE (NEGATIVE); RESPIRATORY SYNCYTIAL VIR NAA NEGATIVE (NEGATIVE)
[2024-12-21 19:34] LABS: APPEARANCE,URINE CLEAR (Clear); GLUCOSE,URINE NEGATIVE (Negative); OCCULT BLOOD,URINE NEGATIVE (Negative)
[2024-12-21 19:42] LABS: EPITHELIAL CELLS,URINE 0-5 /hpf (0-5)
[2024-12-21] MEDS ORDERED: Ondansetron 4 MG/2 ML SDV IV PRN (20:03)
[2024-12-21] MEDS: cefTRIAXone 1 GM in Water For Injection, Sterile 10 ML IVPUSH ONE (20:22)
[2024-12-22 05:31] LABS: BASOPHILS ABSOLUTE AUTO 0.0 K/mm3 (0.0-0.2); BASOPHILS PERCENT AUTO 0.4 % (0.0-1.0); EOSINOPHILS ABSOLUTE AUTO 0.1 K/mm3 (0.0-0.4); EOSINOPHILS PERCENT AUTO 1.6 % (0.0-6.0); IMMATURE GRAN ABSOLUTE AUTO 0.03 K/mm3 (0.00-0.05); IMMATURE GRAN PERCENT AUTO 0.4 % (0.0-0.4); LYMPHOCYTES ABSOLUTE AUTO 1.7 K/mm3 (1.0-4.8); LYMPHOCYTES PERCENT AUTO 22.3 % (24.0-44.0); MEAN PLATELET VOLUME 9.8 fl (9.4-12.3); MONOCYTES ABSOLUTE AUTO 0.9 K/mm3 (0.0-0.8); MONOCYTES PERCENT AUTO 11.9 % (0.0-8.0); NEUTROPHILS ABSOLUTE AUTO 4.8 K/mm3 (1.8-7.7); NEUTROPHILS PERCENT AUTO 63.4 % (41.0-71.0); NRBC ABSOLUTE 0.00 (0.00-0.02); NRBC PERCENT 0.0 % (0.0-0.2); PLATELET COUNT,PLT 227 K/mm3 (150-400); RED BLOOD CELL COUNT 3.32 M/mm3 (4.10-5.30); WHITE BLOOD CELL COUNT,WBC 7.59 K/mm3 (3.9-11.3)
[2024-12-22 05:56] LABS: A/G RATIO 0.9 (1-2); ALANINE AMINOTRANSFERASE,ALT 20.0 U/L (14-59); ASPARTATE AMNIOTRANSFERASE,AST 15.0 U/L (15-37); BILIRUBIN TOTAL 0.3 mg/dL (0.2-1.0); BLOOD UREA NITROGEN,BUN 14.0 mg/dL (7-18); CARBON DIOXIDE,CO2 33.0 mEq/L (21-32); CHLORIDE,CL 108.0 mEq/L (98-107); CREATININE 0.8 mg/dL (0.55-1.02); EST CRCL DRUG DOSING (CG) 44.63 mL/min; ESTIMATED GFR 70.0 mL/min (>60); GLUCOSE RANDOM 89.0 mg/dL (70-99); POTASSIUM,K 4.1 mEq/L (3.5-5.1); PROTEIN TOTAL,TP 6.1 g/dl (6.4-8.2); SODIUM,NA 144.0 mEq/L (136-145)
[2024-12-22] MEDS: cefTRIAXone 1 GM in Water For Injection, Sterile 10 ML IVPUSH SCH (18:30)
[2024-12-23 06:05] LABS: BASOPHILS ABSOLUTE AUTO 0.0 K/mm3 (0.0-0.2); BASOPHILS PERCENT AUTO 0.2 % (0.0-1.0); EOSINOPHILS ABSOLUTE AUTO 0.2 K/mm3 (0.0-0.4); EOSINOPHILS PERCENT AUTO 2.3 % (0.0-6.0); IMMATURE GRAN ABSOLUTE AUTO 0.03 K/mm3 (0.00-0.05); IMMATURE GRAN PERCENT AUTO 0.4 % (0.0-0.4); LYMPHOCYTES ABSOLUTE AUTO 1.9 K/mm3 (1.0-4.8); LYMPHOCYTES PERCENT AUTO 22.5 % (24.0-44.0); MEAN PLATELET VOLUME 10.0 fl (9.4-12.3); MONOCYTES ABSOLUTE AUTO 1.0 K/mm3 (0.0-0.8); MONOCYTES PERCENT AUTO 11.8 % (0.0-8.0); NEUTROPHILS ABSOLUTE AUTO 5.2 K/mm3 (1.8-7.7); NEUTROPHILS PERCENT AUTO 62.8 % (41.0-71.0); NRBC ABSOLUTE 0.00 (0.00-0.02); NRBC PERCENT 0.0 % (0.0-0.2); PLATELET COUNT,PLT 235 K/mm3 (150-400); RED BLOOD CELL COUNT 3.29 M/mm3 (4.10-5.30); WHITE BLOOD CELL COUNT,WBC 8.25 K/mm3 (3.9-11.3)
[2024-12-23 06:38] LABS: A/G RATIO 0.8 (1-2); ALANINE AMINOTRANSFERASE,ALT 20.0 U/L (14-59); ASPARTATE AMNIOTRANSFERASE,AST 17.0 U/L (15-37); BILIRUBIN TOTAL 0.3 mg/dL (0.2-1.0); BLOOD UREA NITROGEN,BUN 15.0 mg/dL (7-18); CARBON DIOXIDE,CO2 32.0 mEq/L (21-32); CHLORIDE,CL 105.0 mEq/L (98-107); CREATININE 1.0 mg/dL (0.55-1.02); EST CRCL DRUG DOSING (CG) 35.7 mL/min; ESTIMATED GFR 54.0 mL/min (>60); GLUCOSE RANDOM 95.0 mg/dL (70-99); POTASSIUM,K 4.0 mEq/L (3.5-5.1); PROTEIN TOTAL,TP 6.2 g/dl (6.4-8.2); SODIUM,NA 142.0 mEq/L (136-145)
[2024-12-23 11:32] LABS: IRON,FE 40.0 ug/dL (50-170); PERCENT FE SATURATION 21.0 % (20-55)
[2024-12-23 12:26] LABS: FOLIC ACID 13.8 ng/mL (8.6-58.9)
[2024-12-23 14:14] VITALS: BP 103/74; PULSE 75
== END 2024-12-23 14:09 | disposition home or self-care (01) | DRG 193 ==
LOC: JD.ED 16:49 → JD.MS 20:03
PROVIDERS: ADMIT Family Medicine; ATTEND Family Medicine
DX: R11.2 Nausea with vomiting, unspecified (principal); J18.9 Pneumonia, unspecified organism; G92.8 Other toxic encephalopathy; J96.01 Acute respiratory failure with hypoxia; N17.9 Acute kidney failure, unspecified; J98.11 Atelectasis; Z66 Do not resuscitate; H91.90 Unspecified hearing loss, unspecified ear; H54.7 Unspecified visual loss; I25.10 Atherosclerotic heart disease of native coronary artery without angina pectoris; E78.00 Pure hypercholesterolemia, unspecified; M19.90 Unspecified osteoarthritis, unspecified site; G89.29 Other chronic pain; M54.9 Dorsalgia, unspecified; F41.9 Anxiety disorder, unspecified; F32.A Depression, unspecified; F43.12 Post-traumatic stress disorder, chronic; I50.9 Heart failure, unspecified; K21.9 Gastro-esophageal reflux disease without esophagitis; E03.9 Hypothyroidism, unspecified; Z79.890 Hormone replacement therapy; E11.9 Type 2 diabetes mellitus without complications; D50.9 Iron deficiency anemia, unspecified; Z96.649 Presence of unspecified artificial hip joint; I25.2 Old myocardial infarction; Z85.43 Personal history of malignant neoplasm of ovary; Z79.899 Other long term (current) drug therapy; Z91.0110 Allergy to milk products, unspecified; Z88.2 Allergy status to sulfonamides; Z88.8 Allergy status to other drugs, medicaments and biological substances; Z79.82 Long term (current) use of aspirin; I11.0 Hypertensive heart disease with heart failure; Z79.01 Long term (current) use of anticoagulants; Z86.718 Personal history of other venous thrombosis and embolism; Z79.52 Long term (current) use of systemic steroids; Z86.16 Personal history of COVID-19; Z98.890 Other specified postprocedural states; Z95.0 Presence of cardiac pacemaker; Z95.2 Presence of prosthetic heart valve; Z90.49 Acquired absence of other specified parts of digestive tract; Z90.710 Acquired absence of both cervix and uterus; Z86.711 Personal history of pulmonary embolism
CPT/HCPCS: 36415; 71045; 71250; 74176; 80053; 81001; 83690; 83735; 83880; 84484; 85025; 87637; 93005; 96361; 96374; 99285; C1758; J1790; J7030; 82607; 82746; 83540; 84466; 86140; 93010; 94761; 99222; 99239; A9270-GY; J0456; J0696; J1271; J7040